=== PATIENT | male | born 1945 | race Native Hawaiian/Other Pacific Islander ===

== ENCOUNTER 2018-03-29 12:50 | Emergency (ER) | payer MEDICARE ==
[2018-03-29 13:13] VITALS: BP 156/76; PULSE 84; RESP 16; TEMP 97.3; O2SAT 98
--- NOTE | 2018-03-29 14:33 | RAD ---
Date of service: 03/29/2018 PROCEDURE: Right Knee Radiographs. HISTORY: fall from walking COMPARISON: None. FINDINGS: BONES: No acute fracture or destructive bony lesion identified. JOINTS: No subluxation or dislocation is identified. Moderate joint space narrowing seen the medial femorotibial compartment as well as the patellofemoral compartment compatible with osteoarthritis. Osteophyte development is mild at the patellofemoral compartment. Remarkable only for ossification insertion of the quadriceps and patellar tendons distally. JOINT EFFUSION: None. OTHER FINDINGS: None. IMPRESSION: Moderate osteoarthritis. No acute fracture, subluxation or dislocation identified.
--- NOTE | 2018-03-29 15:00 | C.PDOC ---
History Of Present Illness 72-year-old male presents to the ED for evaluation after he sustained a fall while walking with his daughter earlier today. Patient states that he tripped, fell, and sustained a contusion to his left forehead, abrasion to his right knee, and superficial abrasion to his left third and fourth knuckles. Patient has a history of brain aneurysm with right-sided craniotomy. He denies loss of consciousness, nausea, vomiting, or extremity numbness and weakness. - HPI Time Seen by Provider: 03/29/18 13:43 Chief Complaint (Nursing): Trauma Past Medical History Reviewed: Historical Data, Nursing Documentation, Vital Signs Vital Signs: Last Vital Signs Temp 97.3 F L 03/29/18 13:12 Pulse 84 03/29/18 13:12 Resp 16 03/29/18 13:12 BP 156/76 H 03/29/18 13:12 Pulse Ox 98 03/29/18 13:12 - Medical History PMH: HTN Family History: States: No Known Family Hx - Social History Hx Alcohol Use: No Hx Substance Use: No Review Of Systems Gastrointestinal: Negative for: Nausea, Vomiting Skin: Positive for: Other (left forehead contusion, abrasion to right knee and left 3rd and 4th knuckles ) Neurological: Negative for: Other (LOC ) Physical Exam - Physical Exam Appears: Non-toxic, No Acute Distress, Other (elderly male ) Skin: Normal Color, Warm, Dry Head: Other (old craniotomy to right temporal area. mild contusion to left frontal area, no swelling ) Eye(s): bilateral: Normal Inspection Oral Mucosa: Moist Neck: Supple Chest: Symmetrical, No Deformity, No Tenderness Cardiovascular: Rhythm Regular, No Murmur Respiratory: Normal Breath Sounds, No Rales, No Rhonchi, No Wheezing Extremity: Normal ROM, Capillary Refill (less than 2 seconds ), Other (moderate contusion with mild swelling to right knee, mild abrasion to left 3rd and 4th knuckles ) Neurological/Psych: Oriented x3, Normal Speech, Normal Cognition ED Course And Treatment O2 Sat by Pulse Oximetry: 98 (on RA) Pulse Ox Interpretation: Normal - CT Scan/US R knee Other Rad Studies (CT/US): Interpreted By Me (neg) head CT Other Rad Studies (CT/US): Interpreted By Me, Radiology Report Reviewed (neg (old craniotomy)) Progress Note: CT Head and right knee XR ordered. ice packs/motrin Reevaluation Time: 14:59 Reassessment Condition: Improved Medical Decision Making Medical Decision Making: accidental fall from walking with L frontal contusion and R knee contusion, L hand abrasions x-rays/CT's neg symptomatic relief. Disposition Doctor Will See Patient In The: Office Counseled Patient/Family Regarding: Studies Performed, Diagnosis - Disposition Referrals: Abril Yang MD [Medical Doctor] - Disposition: HOME/ ROUTINE Disposition Time: 15:00 Condition: GOOD Additional Instructions: CT of head and R knee NEG continue ice packs 1/2 hour per hour, nothing hot motrin 400 mg every 6 hours as needed Instructions: Contusion (DC) Forms: [employer] (British) - Clinical Impression Clinical Impression: Contusion - Scribe Statement The provider has reviewed the documentation as recorded by the Scribe (Lisa Rouse) Provider Attestation: All medical record entries made by the Scribe were at my direction and personally dictated by me. I have reviewed the chart and agree that the record accurately reflects my personal performance of the history, physical exam, medical decision making, and the department course for this patient. I have also personally directed, reviewed, and agree with the discharge instructions and disposition.
[2018-03-29] MEDS ORDERED: Bacitracin 500 Units/gm Oint Foilpak UD ONE (15:07)
--- NOTE | 2018-03-29 15:18 | CT ---
Date of service: 03/29/2018 PROCEDURE: CT HEAD WITHOUT CONTRAST. HISTORY: fall from walking, L frontal COMPARISON: None available. TECHNIQUE: Axial computed tomography images were obtained through the head/brain without intravenous contrast. Radiation dose: Total exam DLP = 1086.34 mGy-cm. This CT exam was performed using one or more of the following dose reduction techniques: Automated exposure control, adjustment of the mA and/or kV according to patient size, and/or use of iterative reconstruction technique. FINDINGS: HEMORRHAGE: No intracranial hemorrhage. 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 Status post clipping of right MCA aneurysm. There is no mass, mass effect or abnormal extra-axial fluid collection. There are severe coarse atherosclerotic calcifications in the carotid and vertebral arteries. VENTRICLES: There is moderate age-related global parenchymal volume loss and proportionate enlargement of the ventricles and cortical sulci. CALVARIUM: Status post right parietal craniotomy. No calvarial fracture. There is a small left frontal scalp hematoma. 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 There is chronic right anterior ethmoid sinusitis. MASTOID AIR CELLS: Fluid in the right mastoid air cells. There is abnormal soft tissue in the right superior mastoids with a defect in the anterior mastoid wall. There is cerumen in the right external auditory canal. OTHER FINDINGS: None. IMPRESSION: 1. No acute intracranial abnormality. Small left frontal scalp hematoma. 2. Status post clipping of right MCA aneurysm in the sylvian fissure, cystic encephalomalacia in the right temporal lobe. 3. Cystic encephalomalacia in the left frontal lobe. 4. Chronic right maxillary sinusitis. 5. Acute and/or chronic right mastoiditis. Abnormal soft tissue in the right superior mastoid with defect in the anterior wall, findings could represent chronic inflammatory tissue however cholesteatoma and other neoplasms are also differential considerations. Dedicated CT scan of the mastoids on a non emergent basis is recommended for further evaluation.
== END 2018-03-29 15:18 | disposition home or self-care (01) ==
LOC: C.ER 12:50
DX: S80.01XA Contusion of right knee, initial encounter (principal); S00.93XA Contusion of unspecified part of head, initial encounter; W01.0XXA Fall on same level from slipping, tripping and stumbling without subsequent striking against object, initial encounter

== ENCOUNTER 2018-06-02 09:10 | Inpatient (IN) | payer MEDICARE ==
[2018-06-02 10:08] LABS: BASO % 0.2 % (0.0-2.0); EOS # 0.1 K/uL (0.0-0.7); EOS % 0.7 % (0.0-4.0); HEMOGLOBIN 9.3 g/dL (12.0-18.0); LYMPH % 13.3 % (20.0-40.0); MEAN CELL VOLUME 109.1 fL (80.0-94.0); MEAN CORPUSCULAR HEMOGLOBIN 37.2 pg (27.0-31.0); MEAN CORPUSCULAR HGB CONC 34.1 g/dL (33.0-37.0); MEAN PLATELET VOLUME 8.3 fL (7.2-11.7); MONO # 0.5 K/uL (0.0-0.8); MONO % 6.3 % (0.0-10.0); NEUT # 6.2 K/uL (1.8-7.0); NEUT % 79.5 % (50.0-75.0); NRBC % 0.1 % (0.0-2.0); RBC 2.51 Mil/uL (4.40-5.90); RED CELL DISTRIBUTION WIDTH 15.5 % (11.5-14.5); WHITE BLOOD COUNT 7.8 K/uL (4.8-10.8)
[2018-06-02 10:33] LABS: ALB/GLOB RATIO 1.5 (1.0-2.1); ALBUMIN 4.2 g/dL (3.5-5.0); BLOOD UREA NITROGEN 31 mg/dL (9-20); CALCIUM 8.9 mg/dl (8.6-10.4); GFR NON-AFRICAN AMERICAN > 60
[2018-06-02 10:42] LABS: ALT/SGPT 30 U/L (21-72); AST/SGOT 47 U/L (17-59)
--- NOTE | 2018-06-02 11:02 | RAD ---
PROCEDURE: Left Hip X-ray Radiographs. HISTORY: s/p fall - r/o fx COMPARISON: None. TECHNIQUE: 2 views obtained. FINDINGS: BONES: The pelvic ring is intact. There is diffuse bone demineralization. There is no acute fracture or bone destruction. JOINTS: The joint spaces are preserved. SOFT TISSUES: Normal. OTHER FINDINGS: None. IMPRESSION: No acute displaced fracture or dislocation. Please note occult fractures cannot be excluded on plain radiographs. If there is a persistent clinical concern, an MRI of the hip may be performed for further evaluation.
--- NOTE | 2018-06-02 11:07 | RAD ---
Date of service: 06/02/2018 PROCEDURE: Radiographs of the chest and bilateral ribs HISTORY: s/p fall - r/o fx PTX COMPARISON: None available. TECHNIQUE: Frontal radiograph of the chest and multiple oblique radiographs of the bilateral ribs were obtained. 5 views obtained. FINDINGS: RIGHT RIBS: No acute fracture or focal lesion visualized. There is mild diffuse bone demineralization LEFT RIBS: No acute fracture or focal lesion visualized. There is mild diffuse bone demineralization LUNGS: Clear. PLEURA: No pneumothorax or pleural fluid. CARDIOVASCULAR: Normal cardiac size. No pulmonary vascular congestion. There are aortic atherosclerotic calcification present OTHER FINDINGS: None. IMPRESSION: No acute displaced rib fracture. Clear lungs.
[2018-06-02] MEDS ORDERED: Sodium Chloride 0.9% 1,000 ML IV SCH (11:15)
--- NOTE | 2018-06-02 12:21 | C.PDOC ---
History Of Present Illness 72 y/o male comes in to ED s/p slip and fall. Patient states he walking in the kitchen when he slipped on a rag. He denies hitting his head on the ground. Denies LOC. Reports no symptoms prior to fall. Patient is here now complaining of left rib and left hip pain. Denies abdominal pain. - HPI Chief Complaint (Nursing): Trauma History Per: Patient History/Exam Limitations: no limitations Onset/Duration Of Symptoms: Hrs Past Medical History Reviewed: Historical Data, Nursing Documentation, Vital Signs Vital Signs: Last Vital Signs Temp 98.4 F 06/02/18 11:56 Pulse 64 06/02/18 11:56 Resp 20 06/02/18 11:56 BP 176/84 H 06/02/18 11:56 Pulse Ox 99 06/02/18 11:56 - Medical History PMH: HTN Family History: States: No Known Family Hx - Social History Hx Alcohol Use: No Hx Substance Use: No Review Of Systems Except As Marked, All Systems Reviewed And Found Negative. Constitutional: Negative for: Fever, Chills Gastrointestinal: Negative for: Abdominal Pain Musculoskeletal: Positive for: Other (Left rib and left hip pain) Neurological: Negative for: Weakness, Numbness, Other (LOC) Physical Exam - Physical Exam Appears: Non-toxic, No Acute Distress, Other (Thin) Skin: Warm, Dry Head: Atraumatic, Normacephalic Eye(s): bilateral: Normal Inspection Oral Mucosa: Moist Neck: Supple Cardiovascular: Murmur (Systolic murmur) Respiratory: Normal Breath Sounds, No Rhonchi Gastrointestinal/Abdominal: Soft, No Tenderness Extremity: Tenderness (point tenderness to the left anterior rib cage; minimal left hip tenderness), Other (trace edema) Extremity: Bilateral: Normal ROM Neurological/Psych: Oriented x3, Normal Speech, Normal Motor, Normal Sensation ED Course And Treatment - Laboratory Results Result Diagrams: 06/02/18 10:04 06/02/18 10:04 Lab Results: Troponin I < 0.0120 ng/mL (0.00-0.120) 06/02/18 10:04 Total Bilirubin 0.7 mg/dL (0.2-1.3) 06/02/18 10:04 AST 47 U/L (17-59) 06/02/18 10:04 ALT 30 U/L (21-72) 06/02/18 10:04 Alkaline Phosphatase 36 U/L (38-126) L 06/02/18 10:04 Total Protein 6.9 g/dL (6.3-8.3) 06/02/18 10:04 Albumin 4.2 g/dL (3.5-5.0) 06/02/18 10:04 Globulin 2.7 gm/dL (2.2-3.9) 06/02/18 10:04 Albumin/Globulin Ratio 1.5 (1.0-2.1) 06/02/18 10:04 ECG: Interpreted By Me, Viewed By Me ECG Rhythm: Sinus Rhythm Rate From EC O2 Sat by Pulse Oximetry: 99 (RA) Pulse Ox Interpretation: Normal - Other Rad Ribs XR X-Ray: Read By Radiologist Interpretation: FINDINGS: RIGHT RIBS: No acute fracture or focal lesion visualized. There is mild diffuse bone demineralization. LEFT RIBS: No acute fracture or focal lesion visualized. There is mild diffuse bone demineralizat ion. LUNGS: Clear. PLEURA: No pneumothorax or pleural fluid. CARDIOVASCULAR: Normal cardiac size. No pulmonary vascular congestion. There are aortic atherosclerotic calcification present. OTHER FINDINGS: None. IMPRESSION: No acute displaced rib fracture. Clear lungs. Hip/Pelvis XR X-Ray: Read By Radiologist Interpretation: FINDINGS: BONES: The pelvic ring is intact. There is diffuse bone demineralization. There is no acute fracture or bone destruction. JOINTS: The joint spaces are preserved. SOFT TISSUES: Normal. OTHER FINDINGS: None. IMPRESSION: No acute displaced fracture or dislocation. Please note occult fractures cannot be excluded on plain radiographs. If there is a persistent clinical concern, an MRI of the hip may be performed for further evaluation. Medical Decision Making Medical Decision Making: Plan: --EKG --Labs --IV fluids 1L --Hip XR --Bilateral Ribs XR Progress: Discussed case with Dr. Mendoza, patient to be admitted to medical floor for dehydration and hyponatremia. Disposition - Disposition Disposition: HOSPITALIZED Disposition Time: 11:00 Condition: STABLE - Clinical Impression Clinical Impression: Dehydration, Hyponatremia - Scribe Statement The provider has reviewed the documentation as recorded by the Lolly Santamaria Provider Attestation: All medical record entries made by the Michaelibmiguelito were at my direction and personally dictated by me. I have reviewed the chart and agree that the record accurately reflects my personal performance of the history, physical exam, medical decision making, and the department course for this patient. I have also personally directed, reviewed, and agree with the discharge instructions and disposition.
--- NOTE | 2018-06-02 12:57 | CP.PCM.HP ---
History of Present Illness - History of Present Illness History of Present Illness: 72 years old Male [place] with PMH Hypertenssion AVmalformation/aneurysm post repair years and years ago admitted for fall patient reports he was walking in the house and step on a rug and slipped and fell on his butt. afterwhich patient complained of hip and rib pain and dizziness . patient was brought to ER . Xrays of rib abd hip did not show any fracture. But sodium was found to be low and BUN high and anemia. patient was a dmitted for further work up evaluation and management PMH Hypertension S/P Frontal Aneurysmal clipping-1996 [facility] IC bleed /[id number] Cholesterol Post zoster Infection CRI Oateoporosis does not like medication Anemia recent acute anemia, heart murmur, leg edema fluid retention undergoing evaluation Medications lisinopril metoprolol allopurinol furosemide Social non etoh non smoker lives with family very picky on foods Immunization refuses Preventative refuses colonoscopy - lately-due to worsening anemia- patient had chaged mind Present on Admission - Present on Admission Any Indicators Present on Admission: No History of DVT/PE: No History of Uncontrolled Diabetes: No Urinary Catheter: No Decubitus Ulcer Present: No Review of Systems - Constitutional Constitutional: Weakness, Other (no headache, no syncope ). absent: Anorexia (no anorexia but patient is very picky on food due to healthy beliefs ), Fatigue, Fever, Headache - EENT Eyes: absent: Other Visual Disturbances Ears: Dizziness (that happened after the fall) Nose/Mouth/Throat: absent: Nasal Congestion, Sinus Pressure - Cardiovascular Cardiovascular: Leg Edema, Pedal Edema. absent: Chest Pain (but reports pain on right side ribs), Syncope - Respiratory Respiratory: absent: Cough, Pain on Inspiration, Chest Congestion - Musculoskeletal Musculoskeletal: absent: Abnormal Gait (but is walks slowly ), Deformity, Joint Swelling, Stiffness - Integumentary Integumentary: absent: Rash, Sores, Jaundice - Neurological Neurological: Dizziness. absent: Abnormal Movements, Abnormal Speech, Memory Loss - Psychiatric Psychiatric: absent: Confusion, Depression - Endocrine Endocrine: absent: Fatigue, Palpitations, Polydipsia, Polyphagia, Polyuria - Hematologic/Lymphatic Hematologic: absent: Easy Bleeding, Easy Bruising Past Patient History - Past Medical History & Family History Past Medical History?: Yes - Past Social History Smoking Status: Never Smoked - CARDIAC Hx Hypertension: Yes - NEUROLOGICAL Other/Comment: anyeursm - PSYCHIATRIC Hx Substance Use: No - SURGICAL HISTORY Other/Comment: Brain surgery ,aneurysm, 1997 - ANESTHESIA Hx Anesthesia: No Hx Anesthesia Reactions: No Meds Allergies/Adverse Reactions: Allergies Allergy/AdvReac Type Severity Reaction Status Date / Time No Known Allergies Allergy Verified 06/02/18 09:24 Physical Exam - Constitutional Appears: Non-toxic (but looks quiet -looks slow-slower than before slow to answer but answers correctly and appropriately ) - Head Exam Head Exam: ATRAUMATIC, NORMOCEPHALIC - Eye Exam Eye Exam: absent: Nystagmus - ENT Exam ENT Exam: Mucous Membranes Dry - Respiratory Exam Respiratory Exam: Clear to Auscultation Bilateral, NORMAL BREATHING PATTERN - Cardiovascular Exam Cardiovascular Exam: REGULAR RHYTHM, Systolic Murmur - GI/Abdominal Exam GI & Abdominal Exam: Normal Bowel Sounds, Soft. absent: Tenderness (with left inguinal hernia non tender , reducible ) - Extremities Exam Extremities exam: Positive for: full ROM, normal inspection, pedal pulses present (with plus 2 edema uop to below the knee ) - Neurological Exam Neurological exam: Alert, Normal Gait (but walks slow ), Oriented x3, Reflexes Normal - Psychiatric Exam Psychiatric exam: Normal Affect, Normal Mood - Skin Skin Exam: Intact, Normal Color Results - Vital Signs Recent Vital Signs: Last Vital Signs Temp 98.4 F 06/02/18 11:56 Pulse 64 06/02/18 11:56 Resp 20 06/02/18 11:56 BP 176/84 H 06/02/18 11:56 Pulse Ox 99 06/02/18 12:26 - Labs Result Diagrams: 06/02/18 10:04 06/02/18 10:04 Labs: Laboratory Results - last 24 hr 06/02/18 06/02/18 10:04 10:04 WBC 7.8 RBC 2.51 L Hgb 9.3 L Hct 27.4 L MCV 109.1 H MCH 37.2 H MCHC 34.1 RDW 15.5 H Plt Count 139 MPV 8.3 Neut % (Auto) 79.5 H Lymph % (Auto) 13.3 L [place] % (Auto) 6.3 Eos % (Auto) 0.7 Baso % (Auto) 0.2 Neut # (Auto) 6.2 Lymph # (Auto) 1.0 [place] # (Auto) 0.5 Eos # (Auto) 0.1 Baso # (Auto) 0.0 Sodium 124 L Potassium 4.9 Chloride 91 L Carbon Dioxide 26 Anion Gap 12 BUN 31 H Creatinine 1.1 Est GFR ( Amer) > 60 Est GFR (Non-Af Amer) > 60 Random Glucose 94 Calcium 8.9 Total Bilirubin 0.7 AST 47 ALT 30 Alkaline Phosphatase 36 L Troponin I < 0.0120 Total Protein 6.9 Albumin 4.2 Globulin 2.7 Albumin/Globulin Ratio 1.5 Assessment & Plan - Assessment and Plan (Free Text) Assessment: Patient admittedf for Hyponatremia, Dehydration- NS-Ivf- and follow up labs fall- contributory factors-general weakness, recent acute anemia, leg edema/ fluid retention , dehydration, hyponatremia, environemental for hydration, sodium correction, 2d echo, with rib pain hip pain xrays no fracture -supportive, pain control Anemia , megaloblastic ,acute/chronic with recent worsening as per family , patient is very picky on food for health reasons, further education - follow up -continue iron Heart murmur and fluid retention continue lasix 2decho cardio Osteoporosis been refusing medications - Date & Time Date: 06/02/18 Time: 13:11
[2018-06-02 19:47] LABS: BASO % 0.6 % (0.0-2.0); EOS # 0.1 K/uL (0.0-0.7); EOS % 2.3 % (0.0-4.0); HEMOGLOBIN 8.7 g/dL (12.0-18.0); LYMPH # 0.7 K/uL (1.0-4.3); LYMPH % 13.4 % (20.0-40.0); MEAN CELL VOLUME 107.9 fL (80.0-94.0); MEAN CORPUSCULAR HGB CONC 34.3 g/dL (33.0-37.0); MEAN PLATELET VOLUME 7.5 fL (7.2-11.7); MONO # 0.4 K/uL (0.0-0.8); MONO % 7.4 % (0.0-10.0); NEUT # 4.2 K/uL (1.8-7.0); NEUT % 76.3 % (50.0-75.0); NRBC % 0.1 % (0.0-2.0); RBC 2.35 Mil/uL (4.40-5.90); RED CELL DISTRIBUTION WIDTH 15.4 % (11.5-14.5); WHITE BLOOD COUNT 5.6 K/uL (4.8-10.8)
[2018-06-02 20:28] LABS: ALB/GLOB RATIO 1.5 (1.0-2.1); ALBUMIN 3.5 g/dL (3.5-5.0); ALT/SGPT 22 U/L (21-72); AST/SGOT 33 U/L (17-59); BLOOD UREA NITROGEN 25 mg/dL (9-20); CALCIUM 8.5 mg/dl (8.6-10.4); GFR NON-AFRICAN AMERICAN > 60
--- NOTE | 2018-06-03 08:37 | CP.PCM.PN ---
Subjective - Date & Time of Evaluation Date of Evaluation: 06/03/18 Time of Evaluation: 04:00 - Subjective Subjective: chart review lab review- drop in hemoglobin hematcrit FOB ongoing no unusual event on notes still hyponatremic on NS patient seen; seen in the morning but is having echo patient seen, no complaints, more active no bleeding FOB pending echo-EF normal no dizziness appetite is normal Objective - Vital Signs/Intake and Output Vital Signs (last 24 hours): Temp Pulse Resp BP Pulse Ox 98.1 F 68 20 136/64 99 06/03/18 07:00 06/03/18 07:00 06/03/18 07:00 06/03/18 07:00 06/03/18 07:00 Intake and Output: 06/03/18 06/03/18 06:59 18:59 Intake Total 580 Balance 580 - Medications Medications: Current Medications Acetaminophen (Tylenol 325mg Tab) 650 mg PO Q6 PRN PRN Reason: Pain, moderate (4-7) Allopurinol (Zyloprim) 100 mg PO DAILY [facility] Ferrous Gluconate (Fergon) 324 mg PO TID [facility] Sodium Chloride (Sodium Chloride 0.9%) 1,000 mls @ 60 mls/hr IV .[id number] [facility] Last Admin: 06/02/18 21:59 Dose: 60 mls/hr Losartan Potassium (Cozaar) 50 mg PO DAILY [facility] Metoprolol Tartrate (Lopressor) 50 mg PO DAILY [facility] Pantoprazole Sodium (Protonix Ec Tab) 40 mg PO DAILY [facility] Pneumococcal Polyvalent Vaccine (Pneumovax 23 Vaccine) 0.5 ml IM .ONCE ONE Stop: 06/03/18 10:01 Rosuvastatin Calcium (Crestor) 5 mg PO [facility] Last Admin: 06/02/18 21:56 Dose: 5 mg - Labs Labs: 06/02/18 19:39 06/02/18 19:39 - Constitutional Appears: Non-toxic, No Acute Distress - Head Exam Head Exam: ATRAUMATIC, NORMOCEPHALIC - Eye Exam Eye Exam: Normal appearance. absent: Nystagmus - ENT Exam ENT Exam: Mucous Membranes Moist - Respiratory Exam Respiratory Exam: NORMAL BREATHING PATTERN (slight congestion in the bases ) - Cardiovascular Exam Cardiovascular Exam: REGULAR RHYTHM, Murmur - GI/Abdominal Exam GI & Abdominal Exam: Soft, Normal Bowel Sounds. absent: Tenderness - Extremities Exam Extremities Exam: absent: Pedal Edema (no edema today- had lasix ) - Back Exam Back Exam: Full ROM. absent: rash noted - Neurological Exam Neurological Exam: Alert, Awake, Normal Gait, Oriented x3 - Psychiatric Exam Psychiatric exam: Normal Affect, Normal Mood - Skin Skin Exam: Intact, Normal Color Assessment and Plan - Assessment and Plan (Free Text) Assessment: Patient admitted for Hyponatremia post fall yesterday and dehydration on IVF with some improvement of sodium but still on low side, no seizure activity with slight basal congestion- will hold IVF, continue lasix Anemia -acute on chronic- stable hemoglobin low Platelet with no bleeding no hematomas Echocardiogram normal EF hypertension continue meds Cholesterol- on meds history of ICBleed and aneurysm s/p clip- more than 20 years ago , [facility], no intracranial sign and symptoms, controlled GI prophylaxis leg sequentil no drug DVT prophylaxis for now
[2018-06-03] MEDS ORDERED: Pneumococcal 23-Valent Vaccine IM ONE (10:00)
[2018-06-03] MEDS: Pantoprazole 40 mg EC Tab PO SCH (11:00)
[2018-06-03 11:56] LABS: EOS # 0.1 K/uL (0.0-0.7); MONO # 0.3 K/uL (0.0-0.8); NEUT # 2.9 K/uL (1.8-7.0); RED CELL DISTRIBUTION WIDTH 15.6 % (11.5-14.5); WHITE BLOOD COUNT 4.1 K/uL (4.8-10.8)
[2018-06-03 12:10] LABS: BASO % 0.8 % (0.0-2.0); EOS % 2.6 % (0.0-4.0); HEMOGLOBIN 9.1 g/dL (12.0-18.0); LYMPH # 0.7 K/uL (1.0-4.3); LYMPH % 17.3 % (20.0-40.0); MEAN CORPUSCULAR HEMOGLOBIN 37.6 pg (27.0-31.0); MEAN CORPUSCULAR HGB CONC 34.5 g/dL (33.0-37.0); MEAN PLATELET VOLUME 7.2 fL (7.2-11.7); MONO % 7.4 % (0.0-10.0); NEUT % 71.9 % (50.0-75.0); NRBC % 0.2 % (0.0-2.0); RBC 2.42 Mil/uL (4.40-5.90)
[2018-06-03 12:20] LABS: ALB/GLOB RATIO 1.5 (1.0-2.1); ALBUMIN 3.6 g/dL (3.5-5.0); ALT/SGPT 30 U/L (21-72); AST/SGOT 33 U/L (17-59); BLOOD UREA NITROGEN 21 mg/dL (9-20); CALCIUM 8.5 mg/dl (8.6-10.4); GFR NON-AFRICAN AMERICAN > 60
--- NOTE | 2018-06-03 14:19 | CP.PCM.CON ---
<Maricarmen Lockett - Last Filed: 06/03/18 14:51> History of Present Illness - History of Present Illness History of Present Illness: Cardiology Consult Note for Dr. Gray This patient is a 72 year old male with PMHx of HTN, Hemmoraghic Stroke, Osteoporosis, and anemia who was admitted to [facility] for evaluation and treatment of mechanical fall. Cardiology was consulted on this case for evaluation and treatment of persistent lower extremity edema despite lasix administration. ROS difficult to obtained due to patient being slightly confused and is a poor historian. He is AAOx3 (Disoriented to Time (Could not state the year). Overall he states he feels better than yesterday. He states his swelling of the leg improved. ROS: Unabled to be obtained. Patient PMHx: As stated above PSHx: Frontal Aneurysmal Clipping Allergies: NKDA SocialHx: Denies tobacco, EtoH, and Illicit Drug Use FamHx: Non-Cont. Meds: As per MAR. PMD: Dr. Yang. Review of Systems - Review of Systems All systems: reviewed and no additional remarkable complaints except (As per HPI) Past Patient History - Past Medical History & Family History Past Medical History?: Yes - Past Social History Smoking Status: Never Smoked - CARDIAC Hx Hypertension: Yes - NEUROLOGICAL Other/Comment: anyeursm - PSYCHIATRIC Hx Substance Use: No - SURGICAL HISTORY Other/Comment: Brain surgery ,aneurysm, 1997 - ANESTHESIA Hx Anesthesia: No Hx Anesthesia Reactions: No Meds Allergies/Adverse Reactions: Allergies Allergy/AdvReac Type Severity Reaction Status Date / Time No Known Allergies Allergy Verified 06/02/18 09:24 - Medications Medications: Current Medications Acetaminophen (Tylenol 325mg Tab) 650 mg PO Q6 PRN PRN Reason: Pain, moderate (4-7) Allopurinol (Zyloprim) 100 mg PO DAILY [facility] Last Admin: 06/03/18 11:00 Dose: 100 mg Ferrous Gluconate (Fergon) 324 mg PO TID [facility] Last Admin: 06/03/18 11:02 Dose: 324 mg Furosemide (Lasix) 20 mg PO DAILY [facility] Sodium Chloride (Sodium Chloride 0.9%) 1,000 mls @ 60 mls/hr IV .[id number] [facility] Last Admin: 06/02/18 21:59 Dose: 60 mls/hr Losartan Potassium (Cozaar) 50 mg PO DAILY [facility] Last Admin: 06/03/18 11:01 Dose: 50 mg Metoprolol Tartrate (Lopressor) 50 mg PO DAILY [facility] Last Admin: 06/03/18 11:01 Dose: 50 mg Pantoprazole Sodium (Protonix Ec Tab) 40 mg PO DAILY [facility] Last Admin: 06/03/18 11:00 Dose: 40 mg Rosuvastatin Calcium (Crestor) 5 mg PO HS [facility] Last Admin: 06/02/18 21:56 Dose: 5 mg Physical Exam - Constitutional Appears: Non-toxic, No Acute Distress, Cachectic, Chronically Ill - Head Exam Head Exam: ATRAUMATIC, NORMAL INSPECTION, NORMOCEPHALIC - Eye Exam Eye Exam: EOMI, Normal appearance - ENT Exam ENT Exam: Mucous Membranes Moist - Cardiovascular Exam Cardiovascular Exam: RRR, +S1, +S2 - GI/Abdominal Exam GI & Abdominal Exam: Normal Bowel Sounds, Soft. absent: Tenderness - Extremities Exam Extremities exam: Positive for: normal capillary refill. Negative for: pedal edema - Neurological Exam Neurological exam: Alert - Psychiatric Exam Psychiatric exam: Normal Affect, Normal Mood - Skin Skin Exam: Dry, Intact, Normal Color, Warm Results - Vital Signs Recent Vital Signs: Last Vital Signs Temp 98.1 F 06/03/18 07:00 Pulse 68 06/03/18 07:00 Resp 20 06/03/18 07:00 BP 136/64 06/03/18 07:00 Pulse Ox 99 06/03/18 07:00 - Labs Result Diagrams: 06/03/18 11:41 06/03/18 11:41 Labs: Laboratory Results - last 24 hr 06/02/18 06/02/18 06/03/18 19:39 19:39 11:41 WBC 5.6 4.1 L RBC 2.35 L 2.42 L Hgb 8.7 L 9.1 L Hct 25.3 L 26.4 L MCV 107.9 H 109.0 H MCH 37.0 H 37.6 H MCHC 34.3 34.5 RDW 15.4 H 15.6 H Plt Count 63 L D 116 L D MPV 7.5 7.2 Neut % (Auto) 76.3 H 71.9 Lymph % (Auto) 13.4 L 17.3 L [place] % (Auto) 7.4 7.4 Eos % (Auto) 2.3 2.6 Baso % (Auto) 0.6 0.8 Neut # (Auto) 4.2 2.9 Lymph # (Auto) 0.7 L 0.7 L [place] # (Auto) 0.4 0.3 Eos # (Auto) 0.1 0.1 Baso # (Auto) 0.0 0.0 Differential Comment Sodium 125 L Potassium 4.4 Chloride 93 L Carbon Dioxide 25 Anion Gap 12 BUN 25 H Creatinine 1.1 Est GFR ( Amer) > 60 Est GFR (Non-Af Amer) > 60 Random Glucose 107 Calcium 8.5 L Phosphorus Magnesium Total Bilirubin 0.5 AST 33 ALT 22 Alkaline Phosphatase 33 L Total Protein 5.8 L Albumin 3.5 Globulin 2.4 Albumin/Globulin Ratio 1.5 06/03/18 11:41 WBC RBC Hgb Hct MCV MCH MCHC RDW Plt Count MPV Neut % (Auto) Lymph % (Auto) [place] % (Auto) Eos % (Auto) Baso % (Auto) Neut # (Auto) Lymph # (Auto) [place] # (Auto) Eos # (Auto) Baso # (Auto) Differential Comment Sodium 130 L Potassium 4.4 Chloride 94 L Carbon Dioxide 27 Anion Gap 14 BUN 21 H Creatinine 1.0 Est GFR ( Amer) > 60 Est GFR (Non-Af Amer) > 60 Random Glucose 97 Calcium 8.5 L Phosphorus 3.8 Magnesium 1.9 Total Bilirubin 0.6 AST 33 ALT 30 Alkaline Phosphatase 40 Total Protein 6.0 L Albumin 3.6 Globulin 2.4 Albumin/Globulin Ratio 1.5 Assessment & Plan - Assessment and Plan (Free Text) Assessment: 72 year old male with PMHx of HTN, Hemmoraghic Stroke, Osteoporosis, and anemia who was admitted to [facility] for evaluation and treatment of mechanical fall. Cardiology Consulted for evaluation and treatment of persistent lower Ext. Edema. Plan: Lower Ext. Edema ECHO (06/03/18): COMPLETED, Will Review Mgmt: Continue Lasix 20mg PO Daily Compression Stocking Macrocytic Anemia Anemia workup, F/U Patient discussed with Attending (Dr. Gary) Maricarmen Lockett, PGY-2 <Erik Gray - Last Filed: 06/03/18 21:20> Meds - Medications Medications: Current Medications Acetaminophen (Tylenol 325mg Tab) 650 mg PO Q6 PRN PRN Reason: Pain, moderate (4-7) Allopurinol (Zyloprim) 100 mg PO DAILY [facility] Last Admin: 06/03/18 11:00 Dose: 100 mg Ferrous Gluconate (Fergon) 324 mg PO TID [facility] Last Admin: 06/03/18 18:03 Dose: 324 mg Furosemide (Lasix) 20 mg PO DAILY [facility] Last Admin: 06/03/18 14:26 Dose: Not Given Lactulose (Enulose) 20 gm PO DAILY PRN PRN Reason: Constipation Last Admin: 06/03/18 20:21 Dose: 20 gm Losartan Potassium (Cozaar) 50 mg PO DAILY [facility] Last Admin: 06/03/18 11:01 Dose: 50 mg Metoprolol Tartrate (Lopressor) 50 mg PO DAILY [facility] Last Admin: 06/03/18 11:01 Dose: 50 mg Pantoprazole Sodium (Protonix Ec Tab) 40 mg PO DAILY [facility] Last Admin: 06/03/18 11:00 Dose: 40 mg Rosuvastatin Calcium (Crestor) 5 mg PO HS [facility] Last Admin: 06/02/18 21:56 Dose: 5 mg Results - Vital Signs Recent Vital Signs: Last Vital Signs Temp 99.1 F 06/03/18 15:00 Pulse 74 06/03/18 16:40 Resp 20 06/03/18 15:00 BP 172/91 H 06/03/18 15:00 Pulse Ox 100 06/03/18 15:00 - Labs Result Diagrams: 06/03/18 11:41 06/03/18 11:41 Labs: Laboratory Results - last 24 hr 06/03/18 06/03/18 06/03/18 11:41 11:41 16:42 WBC 4.1 L RBC 2.42 L Hgb 9.1 L Hct 26.4 L MCV 109.0 H MCH 37.6 H MCHC 34.5 RDW 15.6 H Plt Count 116 L D MPV 7.2 Neut % (Auto) 71.9 Lymph % (Auto) 17.3 L [place] % (Auto) 7.4 Eos % (Auto) 2.6 Baso % (Auto) 0.8 Neut # (Auto) 2.9 Lymph # (Auto) 0.7 L [place] # (Auto) 0.3 Eos # (Auto) 0.1 Baso # (Auto) 0.0 Differential Comment Retic Count 1.4 Haptoglobin Sodium 130 L Potassium 4.4 Chloride 94 L Carbon Dioxide 27 Anion Gap 14 BUN 21 H Creatinine 1.0 Est GFR ( Amer) > 60 Est GFR (Non-Af Amer) > 60 Random Glucose 97 Calcium 8.5 L Phosphorus 3.8 Magnesium 1.9 Iron TIBC % Saturation Ferritin Total Bilirubin 0.6 AST 33 ALT 30 Alkaline Phosphatase 40 Total Protein 6.0 L Albumin 3.6 Globulin 2.4 Albumin/Globulin Ratio 1.5 Vitamin B12 Folate 06/03/18 06/03/18 06/03/18 16:42 16:42 16:42 WBC RBC Hgb Hct MCV MCH MCHC RDW Plt Count MPV Neut % (Auto) Lymph % (Auto) [place] % (Auto) Eos % (Auto) Baso % (Auto) Neut # (Auto) Lymph # (Auto) [place] # (Auto) Eos # (Auto) Baso # (Auto) Differential Comment Retic Count Haptoglobin 34.6 Sodium Potassium Chloride Carbon Dioxide Anion Gap BUN Creatinine Est GFR ( Amer) Est GFR (Non-Af Amer) Random Glucose Calcium Phosphorus Magnesium Iron 44 L TIBC 245 L % Saturation 18 L Ferritin 248.0 Total Bilirubin AST ALT Alkaline Phosphatase Total Protein Albumin Globulin Albumin/Globulin Ratio Vitamin B12 776 Folate > 20.0 Assessment & Plan - Assessment and Plan (Free Text) Plan: Patient seen and evaluated personally by me. Plan of care d/w the medical cost consultant and as documented
--- NOTE | 2018-06-03 16:27 | CARD ---
APPROVED REPORT Date of service: 06/03/2018 EXAM: Two-dimensional and M-mode echocardiogram with Doppler and color Doppler. INDICATION Dizziness and Vertigo Murmur RISK FACTORS Hypertension 2D DIMENSIONS IVSd0.9 (0.7-1.1cm)LVDd3.8 (3.9-5.9cm) PWd0.9 (0.7-1.1cm)LA Bdvjhq25 (18-58mL) LVDs2.4 (2.5-4.0cm)FS (%) 36.5 % LVEF (%)67.0 (>50%)LVEF (Sorenson's)59.55 % M-Mode DIMENSIONS Left Atrium (MM)3.95 (2.5-4.0cm)IVSd0.82 (0.7-1.1cm) Aortic Root3.37 (2.2-3.7cm)LVDd4.94 (4.0-5.6cm) Aortic Cusp Exc.1.77 (1.5-2.0cm)PWd0.88 (0.7-1.1cm) FS (%) 43 %LVDs2.83 (2.0-3.8cm) LVEF (%)70 (>50%) Mitral Valve MV E Aucbqtqf33.5cm/sMV A Xsvmbnwp65.8cm/sE/A ratio0.8 TDI Lateral E' Peak V8.96cm/sMedial E' Peak V7.45cm/sE/Lateral E'8.3 E/Medial E'10.0 LEFT VENTRICLE The left ventricle is normal size. There is normal left ventricular wall thickness. The left ventricular Sytolic function is normal. The left ventricular ejection fraction is within the normal range. There is normal LV segmental wall motion. Transmitral Doppler flow pattern is Grade I-abnormal relaxation pattern. Normal left atrial pressure by Tissue Doppler. RIGHT VENTRICLE The right ventricle is normal size. The right ventricular systolic function is normal. ATRIA The left atrium size is normal. The right atrium size is normal. AORTIC VALVE The aortic valve is mildly calcified but opens well. There is trace aortic regurgitation. There is no aortic valvular stenosis. MITRAL VALVE The mitral valve is normal in structure. Mitral regurgitation is trace to mild. TRICUSPID VALVE The tricuspid valve is normal in structure. There is trace tricuspid regurgitation. PULMONIC VALVE The pulmonary valve is normal in structure. There is trace pulmonic valvular regurgitation. GREAT VESSELS The aortic root is normal size. The aortic root displays mild to moderate sclerocalcific changes. The IVC is normal in size and collapses >50% with inspiration. PERICARDIAL EFFUSION There is no pericardial effusion. <Conclusion> The left ventricular Sytolic function is normal. There is normal LV segmental wall motion. Grade I diastolic dysfunction - abnormal relaxation pattern. Normal left atrial pressure by Tissue Doppler. The right ventricular systolic function is normal. The aortic valve is mildly calcified but opens well. There is trace aortic regurgitation. Trace to mild mitral, tricuspid and pulmonic regurgitation. The aortic root displays mild to moderate sclerocalcific changes. There is no pericardial effusion.
[2018-06-03 17:50] LABS: IRON 44 ug/dL (49-181)
[2018-06-03 17:59] LABS: % IRON SATURATION 18 (20-55); TOTAL IRON BINDING CAPACITY 245 ug/dL (250-450)
[2018-06-03 18:08] LABS: FOLATE > 20.0 ng/mL
--- NOTE | 2018-06-03 21:18 | CP.PCM.CON ---
History of Present Illness - History of Present Illness History of Present Illness: 72 years old Male honduran with PMH Reason For Consultation: B/L Pedal edema PMH Hypertension S/P Frontal Aneurysmal clipping-1996 [facility] IC bleed /[id number] Cholesterol Post zoster Infection CRI Oateoporosis does not like medication Anemia recent acute anemia, heart murmur, leg edema fluid retention undergoing evaluat ion Medications lisinopril metoprolol allopurinol furosemide Social non etoh non smoker lives with family very picky on foods Immunization refuses Preventative refuses colonoscopy - lately-due to worsening anemia- patient had chaged mind Present on Admission - Present on Admission Any Indicators Present on Admission: No History of DVT/PE: No History of Uncontrolled Diabetes: No Urinary Catheter: No Decubitus Ulcer Present: No Review of Systems - Constitutional Constitutional: Weakness, Other (no headache, no syncope ). absent: Anorexia (no anorexia but patient is very picky on food due to healthy beliefs ), Fatigue, Fever, Headache - EENT Eyes: absent: Other Visual Disturbances Ears: Dizziness (that happened after the fall) Nose/Mouth/Throat: absent: Nasal Congestion, Sinus Pressure - Cardiovascular Cardiovascular: Leg Edema, Pedal Edema. absent: Chest Pain (but reports pain on right side ribs), Syncope - Respiratory Respiratory: absent: Cough, Pain on Inspiration, Chest Congestion - Musculoskeletal Musculoskeletal: absent: Abnormal Gait (but is walks slowly ), Deformity, Joint Swelling, Stiffness - Integumentary Integumentary: absent: Rash, Sores, Jaundice - Neurological Neurological: Dizziness. absent: Abnormal Movements, Abnormal Speech, Memory Loss - Psychiatric Psychiatric: absent: Confusion, Depression - Endocrine Endocrine: absent: Fatigue, Palpitations, Polydipsia, Polyphagia, Polyuria - Hematologic/Lymphatic Hematologic: absent: Easy Bleeding, Easy Bruising Past Patient History - Past Medical History & Family History Past Medical History?: Yes - Past Social History Smoking Status: Never Smoked - CARDIAC Hx Hypertension: Yes - NEUROLOGICAL Other/Comment: anyeursm - PSYCHIATRIC Hx Substance Use: No - SURGICAL HISTORY Other/Comment: Brain surgery ,aneurysm, 1997 - ANESTHESIA Hx Anesthesia: No Hx Anesthesia Reactions: No Meds Allergies/Adverse Reactions: Allergies Allergy/AdvReac Type Severity Reaction Status Date / Time No Known Allergies Allergy Verified 06/02/18 09:24 Physical Exam - Constitutional Appears: Non-toxic (but looks quiet -looks slow-slower than before slow to answer but answers correctly and appropriately ) - Head Exam Head Exam: ATRAUMATIC, NORMOCEPHALIC - Eye Exam Eye Exam: absent: Nystagmus - ENT Exam ENT Exam: Mucous Membranes Dry - Respiratory Exam Respiratory Exam: Clear to Auscultation Bilateral, NORMAL BREATHING PATTERN - Cardiovascular Exam Cardiovascular Exam: REGULAR RHYTHM, Systolic Murmur - GI/Abdominal Exam GI & Abdominal Exam: Normal Bowel Sounds, Soft. absent: Tenderness (with left inguinal hernia non tender , reducible ) - Extremities Exam Extremities exam: Positive for: full ROM, normal inspection, pedal pulses present (with plus 2 edema uop to below the knee ) - Neurological Exam Neurological exam: Alert, Normal Gait (but walks slow ), Oriented x3, Reflexes Normal - Psychiatric Exam Psychiatric exam: Normal Affect, Normal Mood - Skin Skin Exam: Intact, Normal Color Past Patient History - Past Medical History & Family History Past Medical History?: Yes - Past Social History Smoking Status: Never Smoked - CARDIAC Hx Hypertension: Yes - NEUROLOGICAL Other/Comment: anyeursm - PSYCHIATRIC Hx Substance Use: No - SURGICAL HISTORY Other/Comment: Brain surgery ,aneurysm, 1997 - ANESTHESIA Hx Anesthesia: No Hx Anesthesia Reactions: No Meds Allergies/Adverse Reactions: Allergies Allergy/AdvReac Type Severity Reaction Status Date / Time No Known Allergies Allergy Verified 06/02/18 09:24 - Medications Medications: Current Medications Acetaminophen (Tylenol 325mg Tab) 650 mg PO Q6 PRN PRN Reason: Pain, moderate (4-7) Allopurinol (Zyloprim) 100 mg PO DAILY [facility] Last Admin: 06/03/18 11:00 Dose: 100 mg Ferrous Gluconate (Fergon) 324 mg PO TID [facility] Last Admin: 06/03/18 18:03 Dose: 324 mg Furosemide (Lasix) 20 mg PO DAILY [facility] Last Admin: 06/03/18 14:26 Dose: Not Given Lactulose (Enulose) 20 gm PO DAILY PRN PRN Reason: Constipation Last Admin: 06/03/18 20:21 Dose: 20 gm Losartan Potassium (Cozaar) 50 mg PO DAILY [facility] Last Admin: 06/03/18 11:01 Dose: 50 mg Metoprolol Tartrate (Lopressor) 50 mg PO DAILY [facility] Last Admin: 06/03/18 11:01 Dose: 50 mg Pantoprazole Sodium (Protonix Ec Tab) 40 mg PO DAILY [facility] Last Admin: 06/03/18 11:00 Dose: 40 mg Rosuvastatin Calcium (Crestor) 5 mg PO HS [facility] Last Admin: 06/02/18 21:56 Dose: 5 mg Results - Vital Signs Recent Vital Signs: Last Vital Signs Temp 99.1 F 06/03/18 15:00 Pulse 74 06/03/18 16:40 Resp 20 06/03/18 15:00 BP 172/91 H 06/03/18 15:00 Pulse Ox 100 06/03/18 15:00 - Labs Result Diagrams: 06/03/18 11:41 06/03/18 11:41 Labs: Laboratory Results - last 24 hr 06/03/18 06/03/18 06/03/18 11:41 11:41 16:42 WBC 4.1 L RBC 2.42 L Hgb 9.1 L Hct 26.4 L MCV 109.0 H MCH 37.6 H MCHC 34.5 RDW 15.6 H Plt Count 116 L D MPV 7.2 Neut % (Auto) 71.9 Lymph % (Auto) 17.3 L [place] % (Auto) 7.4 Eos % (Auto) 2.6 Baso % (Auto) 0.8 Neut # (Auto) 2.9 Lymph # (Auto) 0.7 L [place] # (Auto) 0.3 Eos # (Auto) 0.1 Baso # (Auto) 0.0 Differential Comment Retic Count 1.4 Haptoglobin Sodium 130 L Potassium 4.4 Chloride 94 L Carbon Dioxide 27 Anion Gap 14 BUN 21 H Creatinine 1.0 Est GFR ( Amer) > 60 Est GFR (Non-Af Amer) > 60 Random Glucose 97 Calcium 8.5 L Phosphorus 3.8 Magnesium 1.9 Iron TIBC % Saturation Ferritin Total Bilirubin 0.6 AST 33 ALT 30 Alkaline Phosphatase 40 Total Protein 6.0 L Albumin 3.6 Globulin 2.4 Albumin/Globulin Ratio 1.5 Vitamin B12 Folate 06/03/18 06/03/18 06/03/18 16:42 16:42 16:42 WBC RBC Hgb Hct MCV MCH MCHC RDW Plt Count MPV Neut % (Auto) Lymph % (Auto) [place] % (Auto) Eos % (Auto) Baso % (Auto) Neut # (Auto) Lymph # (Auto) [place] # (Auto) Eos # (Auto) Baso # (Auto) Differential Comment Retic Count Haptoglobin 34.6 Sodium Potassium Chloride Carbon Dioxide Anion Gap BUN Creatinine Est GFR ( Amer) Est GFR (Non-Af Amer) Random Glucose Calcium Phosphorus Magnesium Iron 44 L TIBC 245 L % Saturation 18 L Ferritin 248.0 Total Bilirubin AST ALT Alkaline Phosphatase Total Protein Albumin Globulin Albumin/Globulin Ratio Vitamin B12 776 Folate > 20.0 Assessment & Plan - Assessment and Plan (Free Text) Assessment: 72 Male admitted for pedal edema R/O CHF HTN Hx of Brain aneurysm Check ECHO - Date & Time Date: 06/02/18 Time: 19:35
[2018-06-04 07:48] LABS: BASO % 0.4 % (0.0-2.0); EOS # 0.1 K/uL (0.0-0.7); EOS % 2.2 % (0.0-4.0); HEMOGLOBIN 9.6 g/dL (12.0-18.0); LYMPH # 0.8 K/uL (1.0-4.3); MEAN CELL VOLUME 107.8 fL (80.0-94.0); MEAN CORPUSCULAR HEMOGLOBIN 37.5 pg (27.0-31.0); MEAN CORPUSCULAR HGB CONC 34.8 g/dL (33.0-37.0); MEAN PLATELET VOLUME 7.7 fL (7.2-11.7); MONO # 0.4 K/uL (0.0-0.8); MONO % 7.5 % (0.0-10.0); NEUT # 4.1 K/uL (1.8-7.0); NEUT % 75.9 % (50.0-75.0); NRBC % 0.1 % (0.0-2.0); RBC 2.56 Mil/uL (4.40-5.90); RED CELL DISTRIBUTION WIDTH 15.5 % (11.5-14.5); WHITE BLOOD COUNT 5.4 K/uL (4.8-10.8)
[2018-06-04 08:02] LABS: ALB/GLOB RATIO 1.3 (1.0-2.1); ALBUMIN 3.5 g/dL (3.5-5.0); ALT/SGPT 37 U/L (21-72); AST/SGOT 32 U/L (17-59); BLOOD UREA NITROGEN 24 mg/dL (9-20); CALCIUM 8.4 mg/dl (8.6-10.4); GFR NON-AFRICAN AMERICAN > 60
[2018-06-04] MEDS: Pantoprazole 40 mg EC Tab PO SCH (09:37)
--- NOTE | 2018-06-04 10:26 | RAD ---
Date of service: 06/03/2018 HISTORY: fall at home COMPARISON: No prior. TECHNIQUE: Chest PA and lateral views FINDINGS: LUNGS: No active pulmonary disease. PLEURA: Small bilateral pleural effusion. No pneumothorax. CARDIOVASCULAR: There is atherosclerotic calcification of thoracic aorta. Normal cardiac size. No pulmonary vascular congestion. OSSEOUS STRUCTURES: No significant abnormalities. VISUALIZED UPPER ABDOMEN: Normal. OTHER FINDINGS: None. IMPRESSION: Small bilateral pleural effusion. No acute infiltrate
--- NOTE | 2018-06-04 10:29 | CARD ---
APPROVED REPORT Date of service: 06/02/2018 EKG Measurement Heart [id number] <Conclusion> Normal sinus rhythm Normal ECG
--- NOTE | 2018-06-04 14:50 | CP.PCM.PN ---
Subjective - Date & Time of Evaluation Date of Evaluation: 06/04/18 Time of Evaluation: 21:00 - Subjective Subjective: chart reiew lab- sodium went low again still anemia despite iron, been on iron 325 TID off IVF due to some slight congestion heard at lung base left on lasix BP on the high side patient seen awake, stayed mostly in bed, but is ambulatory- education came and encouraged patient to walk plan for home discussion -but labs showed persistently low low sodium. and anemia, with history of fall discussion with Hematology since patient is not going home yet Gastro discussion Objective - Vital Signs/Intake and Output Vital Signs (last 24 hours): Temp Pulse Resp BP Pulse Ox 98.2 F 66 20 175/71 H 98 06/04/18 07:00 06/04/18 07:00 06/04/18 07:00 06/04/18 09:37 06/04/18 07:00 - Medications Medications: Current Medications Acetaminophen (Tylenol 325mg Tab) 650 mg PO Q6 PRN PRN Reason: Pain, moderate (4-7) Allopurinol (Zyloprim) 100 mg PO DAILY [facility] Last Admin: 06/04/18 09:37 Dose: 100 mg Ferrous Gluconate (Fergon) 324 mg PO TID [facility] Last Admin: 06/04/18 09:37 Dose: 324 mg Furosemide (Lasix) 20 mg PO DAILY [facility] Last Admin: 06/04/18 09:37 Dose: 20 mg Lactulose (Enulose) 20 gm PO DAILY PRN PRN Reason: Constipation Last Admin: 06/03/18 20:21 Dose: 20 gm Losartan Potassium (Cozaar) 50 mg PO DAILY [facility] Last Admin: 06/04/18 09:36 Dose: 50 mg Metoprolol Tartrate (Lopressor) 50 mg PO DAILY [facility] Last Admin: 06/04/18 09:37 Dose: 50 mg Pantoprazole Sodium (Protonix Ec Tab) 40 mg PO DAILY [facility] Last Admin: 06/04/18 09:37 Dose: 40 mg Rosuvastatin Calcium (Crestor) 5 mg PO HS [facility] Last Admin: 06/03/18 21:41 Dose: 5 mg - Labs Labs: 06/04/18 07:16 06/04/18 07:16 - Constitutional Appears: Non-toxic, No Acute Distress, Other (conversant, oriented x 3, chose to stay in bed since admission- was afraid to move around ) - Head Exam Head Exam: ATRAUMATIC, NORMOCEPHALIC - Eye Exam Eye Exam: Normal appearance. absent: Nystagmus, Periorbital swelling - ENT Exam ENT Exam: Mucous Membranes Moist - Neck Exam Neck Exam: Full ROM. absent: Tenderness - Respiratory Exam Respiratory Exam: Clear to Ausculation Bilateral, NORMAL BREATHING PATTERN - Cardiovascular Exam Cardiovascular Exam: REGULAR RHYTHM, Murmur (loud) - GI/Abdominal Exam GI & Abdominal Exam: Soft, Normal Bowel Sounds (left inguinal hernia no complaints non tender , reducible ). absent: Tenderness - Extremities Exam Extremities Exam: Full ROM. absent: Pedal Edema (since he was in bed ) - Back Exam Back Exam: Full ROM (upper back cervical flexural position but can straighten ). absent: rash noted, tenderness - Neurological Exam Neurological Exam: Alert, Awake, Normal Gait, Oriented x3 - Psychiatric Exam Psychiatric exam: Normal Affect, Normal Mood - Skin Skin Exam: Intact, Normal Color Assessment and Plan - Assessment and Plan (Free Text) Assessment: Patient who was admitted for fall with abnormal aboratory findings persistent hyponatremia- despite IVF and liberal salt intake now( patient had very strict low sodium diet at home ) IVF had improved a bit , but has to stop IVF due to congestion, CXR mild effusion , symptomatic Persistent Anemia- despite Iron supplementation, further discussion with hem low platelets no bleeding Echo normal but has persistent leg edema that needed to be on lasix Hypertension- recent readings uncontrolled- will adjust medication Due to history of falls, and abnormal lab -Hyponatremia, anemia, -will keep patient for now, will repeat labs, consulted Heme and gastro
[2018-06-04 16:57] LABS: BASO % 0.6 % (0.0-2.0); EOS # 0.1 K/uL (0.0-0.7); EOS % 1.9 % (0.0-4.0); HEMOGLOBIN 9.8 g/dL (12.0-18.0); LYMPH % 15.6 % (20.0-40.0); MEAN CELL VOLUME 108.1 fL (80.0-94.0); MEAN CORPUSCULAR HEMOGLOBIN 37.4 pg (27.0-31.0); MEAN CORPUSCULAR HGB CONC 34.6 g/dL (33.0-37.0); MEAN PLATELET VOLUME 8.8 fL (7.2-11.7); MONO # 0.5 K/uL (0.0-0.8); MONO % 7.3 % (0.0-10.0); NEUT # 4.7 K/uL (1.8-7.0); NEUT % 74.6 % (50.0-75.0); NRBC % 0.1 % (0.0-2.0); RBC 2.61 Mil/uL (4.40-5.90); RED CELL DISTRIBUTION WIDTH 15.4 % (11.5-14.5); WHITE BLOOD COUNT 6.2 K/uL (4.8-10.8)
[2018-06-04 17:10] LABS: ALB/GLOB RATIO 1.5 (1.0-2.1); ALBUMIN 3.8 g/dL (3.5-5.0); ALT/SGPT 29 U/L (21-72); AST/SGOT 38 U/L (17-59); BLOOD UREA NITROGEN 28 mg/dL (9-20); CALCIUM 8.1 mg/dl (8.6-10.4); GFR NON-AFRICAN AMERICAN > 60
[2018-06-04] MEDS ORDERED: Sodium Chloride 0.9% 500 ML IV SCH (20:15)
[2018-06-04] MEDS: Sodium Chloride 0.9% 1,000 ML IV SCH (20:54)
[2018-06-05] MEDS ORDERED: Bisacodyl 5mg EC Tab PO ONE (07:51)
[2018-06-05 08:58] LABS: HEMOGLOBIN 9.5 g/dL (12.0-18.0); MEAN CELL VOLUME 108.4 fL (80.0-94.0); MEAN CORPUSCULAR HEMOGLOBIN 38.3 pg (27.0-31.0); MEAN CORPUSCULAR HGB CONC 35.3 g/dL (33.0-37.0); RBC 2.47 Mil/uL (4.40-5.90); RED CELL DISTRIBUTION WIDTH 15.3 % (11.5-14.5); WHITE BLOOD COUNT 4.7 K/uL (4.8-10.8)
[2018-06-05 09:12] LABS: IRON 53 ug/dL (49-181)
[2018-06-05 09:15] LABS: ALB/GLOB RATIO 1.5 (1.0-2.1); ALBUMIN 3.6 g/dL (3.5-5.0); ALT/SGPT 26 U/L (21-72); AST/SGOT 32 U/L (17-59); BLOOD UREA NITROGEN 23 mg/dL (9-20); CALCIUM 8.2 mg/dl (8.6-10.4); GFR NON-AFRICAN AMERICAN > 60
[2018-06-05 09:21] LABS: % IRON SATURATION 23 (20-55); TOTAL IRON BINDING CAPACITY 228 ug/dL (250-450)
--- NOTE | 2018-06-05 09:23 | CP.PCM.PN ---
Subjective - Date & Time of Evaluation Date of Evaluation: 06/04/18 Time of Evaluation: 16:10 - Subjective Subjective: Patient seen and evaluated. More comfortable Pedal edema resolved PMHx: As stated above PSHx: Frontal Aneurysmal Clipping Allergies: NKDA SocialHx: Denies tobacco, EtoH, and Illicit Drug Use FamHx: Non-Cont. Meds: As per APR. PMD: Dr. Yang. Review of Systems - Review of Systems All systems: reviewed and no additional remarkable complaints except (As per HPI) Physical Exam - Constitutional Appears: Non-toxic, No Acute Distress, Cachectic, Chronically Ill - Head Exam Head Exam: ATRAUMATIC, NORMAL INSPECTION, NORMOCEPHALIC - Eye Exam Eye Exam: EOMI, Normal appearance - ENT Exam ENT Exam: Mucous Membranes Moist - Cardiovascular Exam Cardiovascular Exam: RRR, +S1, +S2 - GI/Abdominal Exam GI & Abdominal Exam: Normal Bowel Sounds, Soft. absent: Tenderness - Extremities Exam Extremities exam: Positive for: normal capillary refill. Negative for: pedal edema - Neurological Exam Neurological exam: Alert - Psychiatric Exam Psychiatric exam: Normal Affect, Normal Mood - Skin Skin Exam: Dry, Intact, Normal Color, Warm Assessment & Plan - Assessment and Plan (Free Text) Assessment: 72 year old male with PMHx of HTN, Hemmoraghic Stroke, Osteoporosis, and anemia who was admitted to [facility] for evaluation and treatment of mechanical fall. Cardiology Consulted for evaluation and treatment of persistent lower Ext. Edema now resolved with Lasix Plan: Lower Ext. Edema ECHO (06/03/18): Normal EF, No major valve issues Continue Lasix 20mg PO Daily Compression Stocking Macrocytic Anemia Anemia workup, F/U Objective - Vital Signs/Intake and Output Vital Signs (last 24 hours): Temp Pulse Resp BP Pulse Ox 98.1 F 61 20 155/67 H 95 06/05/18 07:10 06/05/18 07:10 06/05/18 07:10 06/05/18 07:10 06/05/18 07:10 Intake and Output: 06/05/18 06/05/18 06:59 18:59 Intake Total 460 Output Total 650 Balance -190 - Medications Medications: Current Medications Acetaminophen (Tylenol 325mg Tab) 650 mg PO Q6 PRN PRN Reason: Pain, moderate (4-7) Allopurinol (Zyloprim) 100 mg PO DAILY [facility] Last Admin: 06/04/18 09:37 Dose: 100 mg Ferrous Gluconate (Fergon) 324 mg PO TID [facility] Last Admin: 06/04/18 17:43 Dose: 324 mg Furosemide (Lasix) 20 mg PO DAILY [facility] Last Admin: 06/04/18 09:37 Dose: 20 mg Sodium Chloride (Sodium Chloride 0.9%) 1,000 mls @ 70 mls/hr IV .[id number] [facility] Last Admin: 06/04/18 20:54 Dose: 70 mls/hr Lactulose (Enulose) 20 gm PO DAILY PRN PRN Reason: Constipation Last Admin: 06/03/18 20:21 Dose: 20 gm Losartan Potassium (Cozaar) 100 mg PO DAILY [facility] Metoprolol Tartrate (Lopressor) 50 mg PO DAILY [facility] Last Admin: 06/04/18 09:37 Dose: 50 mg Pantoprazole Sodium (Protonix Ec Tab) 40 mg PO DAILY [facility] Last Admin: 06/04/18 09:37 Dose: 40 mg Rosuvastatin Calcium (Crestor) 5 mg PO HS [facility] Last Admin: 06/04/18 22:12 Dose: 5 mg - Labs Labs: 06/05/18 08:40 06/05/18 08:40
[2018-06-05] MEDS: Pantoprazole 40 mg EC Tab PO SCH (09:50)
[2018-06-05] MEDS: Sodium Chloride 0.9% 1,000 ML IV SCH (10:29)
--- NOTE | 2018-06-05 11:39 | CP.PCM.PN ---
Subjective - Date & Time of Evaluation Date of Evaluation: 06/05/18 Time of Evaluation: 11:37 - Subjective Subjective: chart review labs- still low hemoglobin Sodium went up to 129 with IVF Vitals= BP better , med was adjusted discussion with heme Patient seen, by bedside- education- on getting out of bed - Discussion- anemia persists despite iron supplementation- for endoscopy Sodium- up and down- no cough but patient seems slow than befor e om PT Objective - Vital Signs/Intake and Output Vital Signs (last 24 hours): Temp Pulse Resp BP Pulse Ox 98.1 F 61 20 134/74 95 06/05/18 07:10 06/05/18 07:10 06/05/18 07:10 06/05/18 09:51 06/05/18 07:10 Intake and Output: 06/05/18 06/05/18 06:59 18:59 Intake Total 460 Output Total 650 Balance -190 - Medications Medications: Current Medications Acetaminophen (Tylenol 325mg Tab) 650 mg PO Q6 PRN PRN Reason: Pain, moderate (4-7) Allopurinol (Zyloprim) 100 mg PO DAILY [facility] Last Admin: 06/05/18 09:50 Dose: 100 mg Ferrous Gluconate (Fergon) 324 mg PO TID [facility] Last Admin: 06/05/18 09:50 Dose: 324 mg Furosemide (Lasix) 20 mg PO DAILY [facility] Last Admin: 06/05/18 09:51 Dose: 20 mg Sodium Chloride (Sodium Chloride 0.9%) 1,000 mls @ 70 mls/hr IV .[id number] [facility] Last Admin: 06/05/18 10:29 Dose: 70 mls/hr Lactulose (Enulose) 20 gm PO DAILY PRN PRN Reason: Constipation Last Admin: 06/03/18 20:21 Dose: 20 gm Losartan Potassium (Cozaar) 100 mg PO DAILY [facility] Last Admin: 06/05/18 09:52 Dose: 100 mg Metoprolol Tartrate (Lopressor) 50 mg PO DAILY [facility] Last Admin: 06/05/18 09:51 Dose: 50 mg Pantoprazole Sodium (Protonix Ec Tab) 40 mg PO DAILY [facility] Last Admin: 06/05/18 09:50 Dose: 40 mg Rosuvastatin Calcium (Crestor) 5 mg PO HS [facility] Last Admin: 06/04/18 22:12 Dose: 5 mg - Labs Labs: 06/05/18 08:40 06/05/18 08:40 - Constitutional Appears: Non-toxic, No Acute Distress - Head Exam Head Exam: ATRAUMATIC, NORMOCEPHALIC - Eye Exam Eye Exam: Normal appearance. absent: Nystagmus - ENT Exam ENT Exam: Mucous Membranes Moist - Respiratory Exam Respiratory Exam: Clear to Ausculation Bilateral, NORMAL BREATHING PATTERN - Cardiovascular Exam Cardiovascular Exam: REGULAR RHYTHM, Murmur - Back Exam Back Exam: Full ROM. absent: rash noted - Neurological Exam Neurological Exam: Alert, Awake, Normal Gait, Oriented x3 - Psychiatric Exam Psychiatric exam: Normal Affect, Normal Mood - Skin Skin Exam: Intact, Normal Color Assessment and Plan - Assessment and Plan (Free Text) Assessment: patient with history of fall- found to have Acute Anemia that does not improve with iron supplementation- for endoscopy- heme consulted Hyponatremia- IVf seems to be helping Hypertension- adjusting medication Cholesterol- continue meds History of Brain Aneurysmal/post surgery no acute symptoms follow up labs endoscopy tomorrow plan for home accordingly
[2018-06-05 11:56] LABS: INR 1.2; PROTHROMBIN TIME 12.8 SECONDS (9.7-12.2)
--- NOTE | 2018-06-05 20:49 | CP.PCM.CON ---
History of Present Illness - History of Present Illness History of Present Illness: This patient is a 72 year old male with PMHx of HTN, Hemorrhagic Stroke, Osteoporosis, and anemia who was admitted to [facility] for evaluation and treatment of fall. Cardiology was consulted on this case for evaluation and treatment of persistent lower extremity edema despite lasix administration. Overall he states he feels better than yesterday. He states his swelling of the leg improved. The patient is comfortable, denies SOB, palpitations. Unclear if he has a history of weight loss. He was found to be pancytopenic on admission, stable without fevers or night sweats Past Patient History - Past Medical History & Family History Past Medical History?: Yes - Past Social History Smoking Status: Never Smoked - CARDIAC Hx Hypertension: Yes - NEUROLOGICAL Other/Comment: anyeursm - PSYCHIATRIC Hx Substance Use: No - SURGICAL HISTORY Other/Comment: Brain surgery ,aneurysm, 1997 - ANESTHESIA Hx Anesthesia: No Hx Anesthesia Reactions: No Meds Allergies/Adverse Reactions: Allergies Allergy/AdvReac Type Severity Reaction Status Date / Time No Known Allergies Allergy Verified 06/02/18 09:24 - Medications Medications: Current Medications Acetaminophen (Tylenol 325mg Tab) 650 mg PO Q6 PRN PRN Reason: Pain, moderate (4-7) Allopurinol (Zyloprim) 100 mg PO DAILY [facility] Last Admin: 06/05/18 09:50 Dose: 100 mg Furosemide (Lasix) 20 mg PO DAILY [facility] Last Admin: 06/05/18 09:51 Dose: 20 mg Sodium Chloride (Sodium Chloride 0.9%) 1,000 mls @ 70 mls/hr IV .[id number] [facility] Last Admin: 06/05/18 10:29 Dose: 70 mls/hr Lactulose (Enulose) 20 gm PO DAILY PRN PRN Reason: Constipation Last Admin: 06/03/18 20:21 Dose: 20 gm Losartan Potassium (Cozaar) 100 mg PO DAILY [facility] Last Admin: 06/05/18 09:52 Dose: 100 mg Metoprolol Tartrate (Lopressor) 50 mg PO DAILY [facility] Last Admin: 06/05/18 09:51 Dose: 50 mg Pantoprazole Sodium (Protonix Ec Tab) 40 mg PO DAILY [facility] Last Admin: 06/05/18 09:50 Dose: 40 mg Rosuvastatin Calcium (Crestor) 5 mg PO HS [facility] Last Admin: 06/04/18 22:12 Dose: 5 mg Results - Vital Signs Recent Vital Signs: Last Vital Signs Temp 98 F 06/05/18 15:00 Pulse 64 06/05/18 15:00 Resp 20 06/05/18 15:00 BP 145/75 06/05/18 15:00 Pulse Ox 100 06/05/18 15:00 - Labs Result Diagrams: 06/05/18 08:40 06/05/18 08:40 Labs: Laboratory Results - last 24 hr 06/05/18 06/05/18 06/05/18 08:40 08:40 08:40 WBC 4.7 L RBC 2.47 L Hgb 9.5 L Hct 26.7 L MCV 108.4 H MCH 38.3 H MCHC 35.3 RDW 15.3 H Plt Count 127 L D MPV 7.0 L ESR Retic Count PT INR APTT Sodium 129 L Potassium 3.9 Chloride 92 L Carbon Dioxide 27 Anion Gap 13 BUN 23 H Creatinine 1.0 Est GFR ( Amer) > 60 Est GFR (Non-Af Amer) > 60 POC Glucose (mg/dL) Random Glucose 144 H D Calcium 8.2 L Iron 53 TIBC 228 L % Saturation 23 Ferritin 244.0 Total Bilirubin 0.5 AST 32 ALT 26 Alkaline Phosphatase 44 Lactate Dehydrogenase 897 H Total Protein 6.1 L Albumin 3.6 Globulin 2.4 Albumin/Globulin Ratio 1.5 Carcinoembryonic Ag 4.3 H 06/05/18 06/05/18 06/05/18 08:42 10:57 11:31 WBC RBC Hgb Hct MCV MCH MCHC RDW Plt Count MPV ESR 20 H Retic Count 1.5 PT 12.8 H INR 1.2 APTT 28.0 Sodium Potassium Chloride Carbon Dioxide Anion Gap BUN Creatinine Est GFR ( Amer) Est GFR (Non-Af Amer) POC Glucose (mg/dL) 170 H Random Glucose Calcium Iron TIBC % Saturation Ferritin Total Bilirubin AST ALT Alkaline Phosphatase Lactate Dehydrogenase Total Protein Albumin Globulin Albumin/Globulin Ratio Carcinoembryonic Ag Assessment & Plan (1) Pancytopenia Assessment and Plan: 72 yo man with pancytopenia, anemia, work up, so far showing normal B12 and iron studies, but elevated LDH levels. No obvious blood loss has been reported by the nursing staff. Plan- Will check SPEP, WILD, Ultrasound of liver and spleen. May need bone marrow biopsy if GI work up negative Status: Acute
--- NOTE | 2018-06-05 21:54 | CP.PCM.PN ---
Subjective - Date & Time of Evaluation Date of Evaluation: 06/05/18 Time of Evaluation: 16:35 - Subjective Subjective: Patient seen and evaluated. More comfortable Pedal edema resolved PMHx: As stated above PSHx: Frontal Aneurysmal Clipping Allergies: NKDA SocialHx: Denies tobacco, EtoH, and Illicit Drug Use FamHx: Non-Cont. Meds: As per APR. PMD: Dr. Yang. Review of Systems - Review of Systems All systems: reviewed and no additional remarkable complaints except (As per HPI) Physical Exam - Constitutional Appears: Non-toxic, No Acute Distress, Cachectic, Chronically Ill - Head Exam Head Exam: ATRAUMATIC, NORMAL INSPECTION, NORMOCEPHALIC - Eye Exam Eye Exam: EOMI, Normal appearance - ENT Exam ENT Exam: Mucous Membranes Moist - Cardiovascular Exam Cardiovascular Exam: RRR, +S1, +S2 - GI/Abdominal Exam GI & Abdominal Exam: Normal Bowel Sounds, Soft. absent: Tenderness - Extremities Exam Extremities exam: Positive for: normal capillary refill. Negative for: pedal edema - Neurological Exam Neurological exam: Alert - Psychiatric Exam Psychiatric exam: Normal Affect, Normal Mood - Skin Skin Exam: Dry, Intact, Normal Color, Warm Assessment & Plan - Assessment and Plan (Free Text) Assessment: 72 year old male with PMHx of HTN, Hemmoraghic Stroke, Osteoporosis, and anemia who was admitted to [facility] for evaluation and treatment of mechanical fall. Cardiology Consulted for evaluation and treatment of persistent lower Ext. Edema now resolved with Lasix Plan: Lower Ext. Edema ECHO (06/03/18): Normal EF, No major valve issues Continue Lasix 20mg PO Daily Compression Stocking Macrocytic Anemia Anemia workup, F/U Objective - Vital Signs/Intake and Output Vital Signs (last 24 hours): Temp Pulse Resp BP Pulse Ox 98 F 64 20 145/75 100 06/05/18 15:00 06/05/18 15:00 06/05/18 15:00 06/05/18 15:00 06/05/18 15:00 Intake and Output: 06/05/18 06/06/18 18:59 06:59 Intake Total 860 Output Total 500 Balance 360 - Medications Medications: Current Medications Acetaminophen (Tylenol 325mg Tab) 650 mg PO Q6 PRN PRN Reason: Pain, moderate (4-7) Allopurinol (Zyloprim) 100 mg PO DAILY [facility] Last Admin: 06/05/18 09:50 Dose: 100 mg Furosemide (Lasix) 20 mg PO DAILY [facility] Last Admin: 06/05/18 09:51 Dose: 20 mg Sodium Chloride (Sodium Chloride 0.9%) 1,000 mls @ 70 mls/hr IV .[id number] [facility] Last Admin: 06/05/18 10:29 Dose: 70 mls/hr Lactulose (Enulose) 20 gm PO DAILY PRN PRN Reason: Constipation Last Admin: 06/03/18 20:21 Dose: 20 gm Losartan Potassium (Cozaar) 100 mg PO DAILY [facility] Last Admin: 06/05/18 09:52 Dose: 100 mg Metoprolol Tartrate (Lopressor) 50 mg PO DAILY [facility] Last Admin: 06/05/18 09:51 Dose: 50 mg Pantoprazole Sodium (Protonix Ec Tab) 40 mg PO DAILY [facility] Last Admin: 06/05/18 09:50 Dose: 40 mg Rosuvastatin Calcium (Crestor) 5 mg PO HS [facility] Last Admin: 06/04/18 22:12 Dose: 5 mg - Labs Labs: 06/05/18 08:40 06/05/18 08:40 PT 12.8 SECONDS (9.7-12.2) H 06/05/18 11:31 INR 1.2 06/05/18 11:31 APTT 28.0 SECONDS (21-34) 06/05/18 11:31
[2018-06-06] MEDS: Sodium Chloride 0.9% 1,000 ML IV SCH (02:25)
--- NOTE | 2018-06-06 06:16 | CON ---
DATE: 06/05/2018 LOCATION: 664, bed [facility] was called for GI consultation by the admitting medical team. The patient is seen and fully examined on 06/05/2018 for GI consultation. The entire chart is reviewed including but not limited to the most recent lab and radiology study results, current and the previous medication lists, current and the previous medical events, allergy to medication list as well as all the available current and the previous medical records. Please it has to be mentioned on record that this case was discussed at length yesterday with Dr. Erik Gray, the sap plant maintenance consultant on the case. HISTORY OF PRESENT ILLNESS: This is a 72-year-old male who was admitted to the hospital through the emergency room post fall with left hip and left ribs pain and was found to have no evidence of fracture; however, the patient has subsequent drop of his hemoglobin and hematocrit since admission, but denied any known history of active GI bleeding. No chest pain or palpitation, but generalized weakness and malaise. PAST MEDICAL HISTORY: Including mainly, but not limited to, 1. Hypertension. 2. Hemorrhagic stroke by history. 3. Peptic ulcer disease. 4. Osteoporosis. 5. Chronic lower extremity edema syndrome. 6. Status post frontal aneurysmal clipping as per record. FAMILY HISTORY: Unrelated to specific GI disorder. SOCIAL HISTORY: No reported recent history of cigarette smoking or alcohol intake. CURRENT MEDICATIONS: Post-admission medication list reviewed. LABORATORY DATA: The most recent reported lab results yesterday showed hemoglobin of 9.8, hematocrit 28.2 with thrombocytopenia of 71, white blood cells of 6.2 with subsequent drop of sodium to 121, BUN is 28 with normal creatinine, calcium 8.1 with low iron studies. Cancer markers are still pending. PHYSICAL EXAMINATION: GENERAL: A 72-year-old male, appeared to be somewhat sleepy. VITAL SIGNS: Afebrile with a pulse of 64, respiratory rate 20 to 22, and blood pressure 152/60. HEENT: Pale, dry oral mucous membranes, nonicteric sclerae. LUNGS: Few scattered crepitation. Decreased air entry at bases. HEART: Positive S1 and S2. ABDOMEN: Soft with mild generalized tenderness. No mass or organomegaly. No rebound tenderness or guarding, but midepigastric and left lower quadrant tenderness. EXTREMITIES: With lower extremity edematous changes. No clubbing or cyanosis. NEUROLOGIC: No reported new neurological deficits, sensory or motor. No reported new focal deficits reported. IMPRESSION: 1. Anemia, to rule out upper versus lower gastrointestinal blood loss versus occult gastrointestinal malignancy. It is iron deficiency anemia. The possibility of anemia is secondary to chronic disease was raised. 2. Multiple past medical histories as mentioned above. SUGGESTIONS: 1. Agree with your plan. 2. Endoscopic evaluation of the GI tract when the patient is more stable clinically. Guaiac all the stools daily x3. Antireflux measures. Sectional abdominal and pelvic CAT scan. 3 Cancer markers, results are pending. Further recommendation to follow post-endoscopic evaluation of the GI tract. Javed Martin MD
--- NOTE | 2018-06-06 07:44 | CP.PCM.PN ---
Subjective - Date & Time of Evaluation Date of Evaluation: 06/06/18 Time of Evaluation: 01:30 - Subjective Subjective: chart review no unusual event notes for endoscopy labs noted sodium 129 still hypotonic posm 272 hemoglobin stays low Heme notes appreciated carcinoembronic antigen high patient seen had endoscopy this morning BP noted -very high post op patient could not believe, has no symptoms further discussion of codition as well as to daughter hemoglobin is not improving despite supplementation, even went down today Objective - Vital Signs/Intake and Output Vital Signs (last 24 hours): Temp Pulse Resp BP Pulse Ox 98.3 F 57 L 18 158/71 H 98 06/06/18 04:25 06/06/18 04:25 06/06/18 04:25 06/06/18 04:25 06/06/18 04:25 Intake and Output: 06/06/18 06/06/18 06:59 18:59 Intake Total 960 Output Total 700 Balance 260 - Medications Medications: Current Medications Acetaminophen (Tylenol 325mg Tab) 650 mg PO Q6 PRN PRN Reason: Pain, moderate (4-7) Allopurinol (Zyloprim) 100 mg PO DAILY [facility] Last Admin: 06/05/18 09:50 Dose: 100 mg Sodium Chloride (Sodium Chloride 0.9%) 1,000 mls @ 70 mls/hr IV .[id number] [facility] Last Admin: 06/06/18 02:25 Dose: 70 mls/hr Lactulose (Enulose) 20 gm PO DAILY PRN PRN Reason: Constipation Last Admin: 06/03/18 20:21 Dose: 20 gm Losartan Potassium (Cozaar) 100 mg PO DAILY [facility] Last Admin: 06/05/18 09:52 Dose: 100 mg Metoprolol Tartrate (Lopressor) 50 mg PO DAILY [facility] Last Admin: 06/05/18 09:51 Dose: 50 mg Pantoprazole Sodium (Protonix Ec Tab) 40 mg PO DAILY [facility] Last Admin: 06/05/18 09:50 Dose: 40 mg Rosuvastatin Calcium (Crestor) 5 mg PO HS [facility] Last Admin: 06/05/18 22:29 Dose: 5 mg - Labs Labs: 06/05/18 08:40 06/05/18 08:40 PT 12.8 SECONDS (9.7-12.2) H 06/05/18 11:31 INR 1.2 06/05/18 11:31 APTT 28.0 SECONDS (21-34) 06/05/18 11:31 - Constitutional Appears: No Acute Distress (conversant alert oriented x 3 ) - Head Exam Head Exam: ATRAUMATIC, NORMOCEPHALIC - Eye Exam Eye Exam: Normal appearance. absent: Nystagmus - ENT Exam ENT Exam: Mucous Membranes Moist - Respiratory Exam Respiratory Exam: Clear to Ausculation Bilateral, NORMAL BREATHING PATTERN - Cardiovascular Exam Cardiovascular Exam: REGULAR RHYTHM, Murmur - GI/Abdominal Exam GI & Abdominal Exam: Soft, Normal Bowel Sounds. absent: Tenderness - Extremities Exam Extremities Exam: Full ROM, Normal Inspection. absent: Pedal Edema - Neurological Exam Neurological Exam: Alert, Awake, Normal Gait, Oriented x3 - Psychiatric Exam Psychiatric exam: Normal Affect, Normal Mood - Skin Skin Exam: Intact, Normal Color Assessment and Plan - Assessment and Plan (Free Text) Assessment: Patient with PMH history of Hypertension who has been stable, with recent Bp becoming uncontrolled and more pronounced after surgery- possibly anesthesia effect, continue to monitor, medication adjustment , patient asymptomatic Persistent Anemia despite supplementation, no gross bleeding - for colonoscopy tomorrow Persistent Hyponatremia- hypotonic, calculated posmolality 272 SIADH etiology ?, had episode of dehydration, labs- uric acid,urine sodium, urine osm , tsh pending , ct abdomen scheduled further discussion with family encouraged out of bed
[2018-06-06 07:57] LABS: BASO % 0.5 % (0.0-2.0); EOS # 0.2 K/uL (0.0-0.7); EOS % 3.6 % (0.0-4.0); HEMOGLOBIN 8.9 g/dL (12.0-18.0); LYMPH % 20.4 % (20.0-40.0); MEAN CELL VOLUME 108.7 fL (80.0-94.0); MEAN CORPUSCULAR HEMOGLOBIN 38.3 pg (27.0-31.0); MEAN CORPUSCULAR HGB CONC 35.3 g/dL (33.0-37.0); MEAN PLATELET VOLUME 7.2 fL (7.2-11.7); MONO # 0.4 K/uL (0.0-0.8); MONO % 8.1 % (0.0-10.0); NEUT # 3.2 K/uL (1.8-7.0); NEUT % 67.4 % (50.0-75.0); NRBC % 0.1 % (0.0-2.0); RBC 2.33 Mil/uL (4.40-5.90); RED CELL DISTRIBUTION WIDTH 15.5 % (11.5-14.5); WHITE BLOOD COUNT 4.7 K/uL (4.8-10.8)
[2018-06-06 08:09] LABS: BLOOD UREA NITROGEN 24 mg/dL (9-20); CALCIUM 8.2 mg/dl (8.6-10.4); GFR NON-AFRICAN AMERICAN 59
[2018-06-06] MEDS ORDERED: Iohexol 240 (50 ml) PO ONE (08:45)
--- NOTE | 2018-06-06 09:03 | US ---
Date of service: 06/06/2018 HISTORY: pancytopenia, r/o splenomegaly COMPARISON: None. TECHNIQUE: Grayscale imaging was performed. FINDINGS: LIVER: Measures 12.9 cm. There is diffuse increased echogenicity of the liver parenchyma. There are multiple simple cysts, the largest in the right hepatic lobe measures 1.5 x 1.5 x 1.5 cm.. No intrahepatic bile duct dilatation. GALLBLADDER: There are no gallstones, wall thickening or pericholecystic fluid. The sonographic Brock's sign is negative. COMMON BILE DUCT: Measures 6.7 mm. No stones. No dilatation. PANCREAS: Unremarkable as visualized. No mass. No ductal dilatation. RIGHT KIDNEY: Measures 8.6cm. Diffuse increased echogenicity. No calculus, mass, or hydronephrosis. There is a 2.6 x 2.2 x 2.1 cm simple cyst in the interpolar region. LEFT KIDNEY: Measures 8.3cm. Diffuse increased echogenicity. No calculus, mass, or hydronephrosis. There is a 1.0 x 0.9 x 0.9 cm simple cyst in the lower pole. SPLEEN: Normal in size and contour. No mass. AORTA: No aneurysmal dilatation. IVC: Unremarkable. OTHER FINDINGS: None. IMPRESSION: 1. Fatty liver. 2. Multiple simple cysts in the liver, the largest in the right hepatic lobe measures 1.5 cm. 3. Bilateral small kidneys with chronic renal parenchymal disease. 4. No evidence of splenomegaly as clinically questioned.
[2018-06-06] MEDS: Pantoprazole 40 mg EC Tab PO SCH (09:05)
[2018-06-06] MEDS ORDERED: Lactated Ringer's 1,000 ML IV ONE (10:15)
[2018-06-06] MEDS ORDERED: Etomidate 20 mg/10ml Inj IV ONE (10:21)
[2018-06-06 11:22] LABS: URIC ACID 3.5 mg/dL (3.5-8.5)
[2018-06-06] MEDS ORDERED: Peg-Electrolyte Oral Soln 4L (Golytely) PO ONE (11:45)
[2018-06-06] MEDS ORDERED: Magnesium Citrate Oral SOL (300 ml) PO ONE ×3 (16:00→20:00)
[2018-06-06] MEDS ORDERED: Bisacodyl 5mg EC Tab PO ONE (17:00)
--- NOTE | 2018-06-06 22:52 | CP.PCM.PN ---
Subjective - Date & Time of Evaluation Date of Evaluation: 06/06/18 Time of Evaluation: 13:20 - Subjective Subjective: Patient seen and evaluated No cardiac events noted Objective - Vital Signs/Intake and Output Vital Signs (last 24 hours): Temp Pulse Resp BP Pulse Ox 98.6 F 76 20 180/70 H 99 06/06/18 15:25 06/06/18 17:00 06/06/18 15:25 06/06/18 15:25 06/06/18 15:25 Intake and Output: 06/06/18 06/07/18 18:59 06:59 Intake Total 440 Balance 440 - Medications Medications: Current Medications Acetaminophen (Tylenol 325mg Tab) 650 mg PO Q6 PRN PRN Reason: Pain, moderate (4-7) Allopurinol (Zyloprim) 100 mg PO DAILY [facility] Last Admin: 06/06/18 09:05 Dose: 100 mg Amlodipine Besylate (Norvasc) 5 mg PO DAILY [facility] Last Admin: 06/06/18 14:40 Dose: 5 mg Bisacodyl (Dulcolax) 5 mg PO ONCE ONE Stop: 06/07/18 06:01 Hydralazine HCl (Apresoline) 10 mg PO QID [facility] Last Admin: 06/06/18 21:56 Dose: 10 mg Lactulose (Enulose) 20 gm PO DAILY PRN PRN Reason: Constipation Last Admin: 06/03/18 20:21 Dose: 20 gm Losartan Potassium (Cozaar) 100 mg PO DAILY [facility] Last Admin: 06/06/18 09:06 Dose: 100 mg Metoclopramide HCl (Reglan) 5 mg IVP Q6H [facility] Stop: 06/08/18 23:59 Last Admin: 06/06/18 21:56 Dose: 5 mg Metoprolol Tartrate (Lopressor) 50 mg PO DAILY [facility] Last Admin: 06/06/18 09:05 Dose: 50 mg Pantoprazole Sodium (Protonix Ec Tab) 40 mg PO DAILY [facility] Last Admin: 06/06/18 09:05 Dose: 40 mg Rosuvastatin Calcium (Crestor) 5 mg PO HS [facility] Last Admin: 06/06/18 21:56 Dose: 5 mg - Labs Labs: 06/06/18 07:44 06/06/18 07:44 PT 12.8 SECONDS (9.7-12.2) H 06/05/18 11:31 INR 1.2 06/05/18 11:31 APTT 28.0 SECONDS (21-34) 06/05/18 11:31
[2018-06-07] MEDS ORDERED: Bisacodyl 5mg EC Tab PO ONE (06:00)
--- NOTE | 2018-06-07 06:20 | CP.PCM.PN ---
Subjective - Date & Time of Evaluation Date of Evaluation: 06/07/18 Time of Evaluation: 01:00 - Subjective Subjective: chart review post colonoscopy -BP went high , meds adjusted Vitals today--better and controlled no unususal event bowel prep for colonoscopy today Labs- still anemic Sodium slow improvement but better daughter informed patient seen- had colonoscopy with colon mass discussion with family , patient had episode of constipation- but with laxative- was able to have bowel movement NO VOMITING NO ABDOMINAL PAIN patient discussion to follow Objective - Vital Signs/Intake and Output Vital Signs (last 24 hours): Temp Pulse Resp BP Pulse Ox 98.1 F 63 20 112/64 98 06/06/18 23:35 06/07/18 04:16 06/06/18 23:35 06/06/18 23:35 06/06/18 23:35 Intake and Output: 06/06/18 06/07/18 18:59 06:59 Intake Total 440 Balance 440 - Medications Medications: Current Medications Acetaminophen (Tylenol 325mg Tab) 650 mg PO Q6 PRN PRN Reason: Pain, moderate (4-7) Allopurinol (Zyloprim) 100 mg PO DAILY [facility] Last Admin: 06/06/18 09:05 Dose: 100 mg Amlodipine Besylate (Norvasc) 5 mg PO DAILY [facility] Last Admin: 06/06/18 14:40 Dose: 5 mg Hydralazine HCl (Apresoline) 10 mg PO QID [facility] Last Admin: 06/06/18 21:56 Dose: 10 mg Lactulose (Enulose) 20 gm PO DAILY PRN PRN Reason: Constipation Last Admin: 06/03/18 20:21 Dose: 20 gm Losartan Potassium (Cozaar) 100 mg PO DAILY [facility] Last Admin: 06/06/18 09:06 Dose: 100 mg Metoclopramide HCl (Reglan) 5 mg IVP Q6H [facility] Stop: 06/08/18 23:59 Last Admin: 06/07/18 04:19 Dose: 5 mg Metoprolol Tartrate (Lopressor) 50 mg PO DAILY [facility] Last Admin: 06/06/18 09:05 Dose: 50 mg Pantoprazole Sodium (Protonix Ec Tab) 40 mg PO DAILY [facility] Last Admin: 06/06/18 09:05 Dose: 40 mg Rosuvastatin Calcium (Crestor) 5 mg PO HS [facility] Last Admin: 06/06/18 21:56 Dose: 5 mg - Labs Labs: 06/06/18 07:44 06/06/18 07:44 PT 12.8 SECONDS (9.7-12.2) H 06/05/18 11:31 INR 1.2 06/05/18 11:31 APTT 28.0 SECONDS (21-34) 06/05/18 11:31 - Constitutional Appears: Non-toxic, No Acute Distress - Head Exam Head Exam: ATRAUMATIC, NORMOCEPHALIC - Eye Exam Eye Exam: Normal appearance. absent: Nystagmus - ENT Exam ENT Exam: Mucous Membranes Moist - Neck Exam Neck Exam: Full ROM. absent: Tenderness - Respiratory Exam Respiratory Exam: Clear to Ausculation Bilateral, NORMAL BREATHING PATTERN - Cardiovascular Exam Cardiovascular Exam: REGULAR RHYTHM, Murmur - GI/Abdominal Exam GI & Abdominal Exam: Soft, Normal Bowel Sounds. absent: Tenderness - Extremities Exam Extremities Exam: Full ROM, Normal Inspection. absent: Pedal Edema - Back Exam Back Exam: Full ROM. absent: tenderness - Neurological Exam Neurological Exam: Alert, Awake, Normal Gait, Oriented x3 - Psychiatric Exam Psychiatric exam: Normal Affect, Normal Mood - Skin Skin Exam: Intact, Normal Color Assessment and Plan - Assessment and Plan (Free Text) Assessment: 72 Y.O. PATIENT WITH ACUTE ANEMIA,, HYPONATREMIA, FOUND TO HAVE COLON LESION- WITH FAILURE TO PASS SCOPE, CURRENTLY WITH SOME CONSTIPATION FURTHER DISCUSSION WITH FAMILY, PATIENT'S DECISON, SURGERY CONSULT, HEME OCOLOGIST ON THE CASE . WILL FOLLOW UP ABDOMEN AND PELVIS SCAN HYPERTENSION- BETTER CONTINUE CURRENT MEDICATION
[2018-06-07 10:41] LABS: URINE BILIRUBIN NEGATIVE (NEGATIVE); URINE BLOOD 1+ (NEGATIVE); URINE CLARITY Clear (Clear); URINE COLOR Yellow (YELLOW); URINE GLUCOSE (UA) NORMAL (Normal); URINE LEUKOCYTE ESTERASE NEG Leu/uL (Negative); URINE PROTEIN NEGATIVE (NEGATIVE); URINE UROBILINOGEN NORMAL mg/dL (0.2-1.0)
[2018-06-07] MEDS ORDERED: Propofol 10 mg/ml Inj (20 ML) ONE (11:31)
[2018-06-07] MEDS: Pantoprazole 40 mg EC Tab PO SCH (13:19)
[2018-06-07 15:52] LABS: BASO % 0.6 % (0.0-2.0); EOS # 0.1 K/uL (0.0-0.7); EOS % 1.6 % (0.0-4.0); HEMOGLOBIN 9.3 g/dL (12.0-18.0); LYMPH # 0.7 K/uL (1.0-4.3); LYMPH % 15.3 % (20.0-40.0); MEAN CELL VOLUME 108.5 fL (80.0-94.0); MEAN PLATELET VOLUME 8.5 fL (7.2-11.7); MONO # 0.5 K/uL (0.0-0.8); MONO % 9.7 % (0.0-10.0); NEUT # 3.5 K/uL (1.8-7.0); NEUT % 72.8 % (50.0-75.0); NRBC % 0.2 % (0.0-2.0); RBC 2.46 Mil/uL (4.40-5.90); RED CELL DISTRIBUTION WIDTH 15.6 % (11.5-14.5); WHITE BLOOD COUNT 4.9 K/uL (4.8-10.8)
[2018-06-07 16:44] LABS: BLOOD UREA NITROGEN 20 mg/dL (9-20); CALCIUM 8.2 mg/dl (8.6-10.4); GFR NON-AFRICAN AMERICAN > 60
--- NOTE | 2018-06-07 17:13 | CP.PCM.CON ---
History of Present Illness - History of Present Illness History of Present Illness: Surgery: Dr. Fierro Reason for consult: SBO HPI: Patient is a 72 y/o male who presented with fall and anemia and is s/p EGD and colonoscopy. Patient poor historian. Most History obtained from medical record. Patient denies abdominal pain, reports multiple bowel movements yesterday for colonoscopy prep. Denies n/v/f/c. Patient underwent colonoscopy which showed spasm of the sigmoid colon and the colonoscopy was aborted due to inability to pass scope. Surgery was consulted for evaluation. PMH: HTN, brain aneurysm, stroke, HLD, Shingles, Osteoporosis, anemia PSH: aneurysm clip, colonoscopy/EGD Social: denies toxic habits Review of Systems - Review of Systems All systems: reviewed and no additional remarkable complaints except Review of Systems: unless stated in HPI Past Patient History - Past Medical History & Family History Past Medical History?: Yes - Past Social History Smoking Status: Never Smoked - CARDIAC Hx Cardiac Disorders: Yes Hx Hypertension: Yes - PULMONARY Hx Respiratory Disorders: No - NEUROLOGICAL Hx Neurological Disorder: Yes Other/Comment: anyeursm rt head - HEENT Hx HEENT Problems: Yes Other/Comment: wear glasses for poor vision - RENAL Hx Chronic Kidney Disease: No - ENDOCRINE/METABOLIC Hx Endocrine Disorders: No - HEMATOLOGICAL/ONCOLOGICAL Hx Blood Disorders: No - INTEGUMENTARY Hx Dermatological Problems: No - MUSCULOSKELETAL/RHEUMATOLOGICAL Hx Falls: Yes - GASTROINTESTINAL Hx Gastrointestinal Disorders: No - PSYCHIATRIC Hx Substance Use: No - SURGICAL HISTORY Hx Surgeries: Yes Other/Comment: Brain surgery ,aneurysm, 1997 - ANESTHESIA Hx Anesthesia: Yes Hx Anesthesia Reactions: No Meds Allergies/Adverse Reactions: Allergies Allergy/AdvReac Type Severity Reaction Status Date / Time No Known Allergies Allergy Verified 06/02/18 09:24 - Medications Medications: Current Medications Acetaminophen (Tylenol 325mg Tab) 650 mg PO Q6 PRN PRN Reason: Pain, moderate (4-7) Allopurinol (Zyloprim) 100 mg PO DAILY [facility] Last Admin: 06/07/18 13:19 Dose: 100 mg Amlodipine Besylate (Norvasc) 5 mg PO DAILY [facility] Last Admin: 06/07/18 13:20 Dose: 5 mg Hydralazine HCl (Apresoline) 10 mg PO QID [facility] Last Admin: 06/07/18 13:19 Dose: 10 mg Lactulose (Enulose) 20 gm PO DAILY PRN PRN Reason: Constipation Last Admin: 06/03/18 20:21 Dose: 20 gm Losartan Potassium (Cozaar) 100 mg PO DAILY [facility] Last Admin: 06/07/18 13:19 Dose: 100 mg Metoclopramide HCl (Reglan) 5 mg IVP Q6H [facility] Stop: 06/08/18 23:59 Last Admin: 06/07/18 16:24 Dose: 5 mg Metoprolol Tartrate (Lopressor) 50 mg PO DAILY [facility] Last Admin: 06/07/18 13:18 Dose: 50 mg Pantoprazole Sodium (Protonix Ec Tab) 40 mg PO DAILY [facility] Last Admin: 06/07/18 13:19 Dose: 40 mg Rosuvastatin Calcium (Crestor) 5 mg PO HS [facility] Last Admin: 06/06/18 21:56 Dose: 5 mg Physical Exam - Constitutional Appears: Non-toxic, No Acute Distress - Head Exam Head Exam: ATRAUMATIC, NORMOCEPHALIC - Eye Exam Eye Exam: EOMI, Normal appearance - ENT Exam ENT Exam: Mucous Membranes Moist - Respiratory Exam Respiratory Exam: NORMAL BREATHING PATTERN. absent: Respiratory Distress - Cardiovascular Exam Cardiovascular Exam: REGULAR RHYTHM. absent: Tachycardia - GI/Abdominal Exam GI & Abdominal Exam: Soft. absent: Distended, Guarding, Hernia, Rebound, Tenderness - Rectal Exam Rectal Exam: Deferred - Extremities Exam Extremities exam: Positive for: normal inspection. Negative for: calf tenderness - Neurological Exam Neurological exam: Alert - Psychiatric Exam Psychiatric exam: Flat Affect - Skin Skin Exam: Normal Color, Warm Results - Vital Signs Recent Vital Signs: Last Vital Signs Temp 98.9 F 06/07/18 15:58 Pulse 67 06/07/18 15:58 Resp 18 06/07/18 15:58 BP 116/62 06/07/18 15:58 Pulse Ox 100 06/07/18 15:58 - Labs Result Diagrams: 06/07/18 15:40 06/07/18 15:40 Labs: Laboratory Results - last 24 hr 06/06/18 06/06/18 06/06/18 07:44 07:44 09:20 WBC RBC Hgb Hct MCV MCH MCHC RDW Plt Count MPV Neut % (Auto) Lymph % (Auto) Schley % (Auto) Eos % (Auto) Baso % (Auto) Neut # (Auto) Lymph # (Auto) Schley # (Auto) Eos # (Auto) Baso # (Auto) Sodium Potassium Chloride Carbon Dioxide Anion Gap BUN Creatinine Est GFR ( Amer) Est GFR (Non-Af Amer) Random Glucose Calcium Magnesium Total Protein (PEP) 5.4 L Cortisol AM Sample 10.9 Urine Color Urine Clarity Urine pH Ur Specific Hartley Urine Protein Urine Glucose (UA) Urine Ketones Urine Blood Urine Nitrate Urine Bilirubin Urine Urobilinogen Ur Leukocyte Esterase Urine WBC (Auto) Urine RBC (Auto) Ur Random Sodium Serum Immunofixation Not detected 06/07/18 06/07/18 06/07/18 10:11 10:11 15:40 WBC 4.9 RBC 2.46 L Hgb 9.3 L Hct 26.7 L MCV 108.5 H MCH 38.0 H MCHC 35.0 RDW 15.6 H Plt Count 91 L D MPV 8.5 Neut % (Auto) 72.8 Lymph % (Auto) 15.3 L Schley % (Auto) 9.7 Eos % (Auto) 1.6 Baso % (Auto) 0.6 Neut # (Auto) 3.5 Lymph # (Auto) 0.7 L Schley # (Auto) 0.5 Eos # (Auto) 0.1 Baso # (Auto) 0.0 Sodium Potassium Chloride Carbon Dioxide Anion Gap BUN Creatinine Est GFR ( Amer) Est GFR (Non-Af Amer) Random Glucose Calcium Magnesium Total Protein (PEP) Cortisol AM Sample Urine Color Yellow Urine Clarity Clear Urine pH 5.0 Ur Specific Hartley 1.014 Urine Protein Negative Urine Glucose (UA) Normal Urine Ketones Negative Urine Blood 1+ H Urine Nitrate Negative Urine Bilirubin Negative Urine Urobilinogen Normal Ur Leukocyte Esterase Neg Urine WBC (Auto) < 1 Urine RBC (Auto) 10 H Ur Random Sodium 60 Serum Immunofixation 06/07/18 15:40 WBC RBC Hgb Hct MCV MCH MCHC RDW Plt Count MPV Neut % (Auto) Lymph % (Auto) Schley % (Auto) Eos % (Auto) Baso % (Auto) Neut # (Auto) Lymph # (Auto) Schley # (Auto) Eos # (Auto) Baso # (Auto) Sodium 129 L Potassium 4.5 Chloride 93 L Carbon Dioxide 25 Anion Gap 16 BUN 20 Creatinine 1.0 Est GFR ( Amer) > 60 Est GFR (Non-Af Amer) > 60 Random Glucose 122 H D Calcium 8.2 L Magnesium 2.7 H Total Protein (PEP) Cortisol AM Sample Urine Color Urine Clarity Urine pH Ur Specific Hartley Urine Protein Urine Glucose (UA) Urine Ketones Urine Blood Urine Nitrate Urine Bilirubin Urine Urobilinogen Ur Leukocyte Esterase Urine WBC (Auto) Urine RBC (Auto) Ur Random Sodium Serum Immunofixation Assessment & Plan - Assessment and Plan (Free Text) Assessment: 72 y/o male w/ colon spasm and anemia Plan: -clinically not obstructed -maintain normal electrolyte level -rec CT w/ po and IV contrast since no imaging performed -will f/u imaging results -no surgical intervention at this time -d/w Dr. Vadim Etienne PGY4
[2018-06-07] MEDS ORDERED: Iohexol 240 (50 ml) PO ONE (21:30)
[2018-06-07] MEDS ORDERED: Iodixanol 320 mg/ml 150 ml Bottle IV ONE (23:41)
[2018-06-08 00:04] VITALS: RESP 20
--- NOTE | 2018-06-08 06:58 | CP.PCM.PN ---
Subjective - Date & Time of Evaluation Date of Evaluation: 06/07/18 Time of Evaluation: 19:35 - Subjective Subjective: Patient seen and evaluated. More comfortable Pedal edema resolved Constipation PMHx: As stated above PSHx: Frontal Aneurysmal Clipping Allergies: NKDA SocialHx: Denies tobacco, EtoH, and Illicit Drug Use FamHx: Non-Cont. Meds: As per APR. PMD: Dr. Yang. Review of Systems - Review of Systems All systems: reviewed and no additional remarkable complaints except (As per HPI) Physical Exam - Constitutional Appears: Non-toxic, No Acute Distress, Cachectic, Chronically Ill - Head Exam Head Exam: ATRAUMATIC, NORMAL INSPECTION, NORMOCEPHALIC - Eye Exam Eye Exam: EOMI, Normal appearance - ENT Exam ENT Exam: Mucous Membranes Moist - Cardiovascular Exam Cardiovascular Exam: RRR, +S1, +S2 - GI/Abdominal Exam GI & Abdominal Exam: Normal Bowel Sounds, Soft. absent: Tenderness - Extremities Exam Extremities exam: Positive for: normal capillary refill. Negative for: pedal edema - Neurological Exam Neurological exam: Alert - Psychiatric Exam Psychiatric exam: Normal Affect, Normal Mood - Skin Skin Exam: Dry, Intact, Normal Color, Warm Assessment & Plan - Assessment and Plan (Free Text) Assessment: 72 year old male with PMHx of HTN, Hemmoraghic Stroke, Osteoporosis, and anemia who was admitted to [facility] for evaluation and treatment of mechanical fall. Cardiology Consulted for evaluation and treatment of persistent lower Ext. Edema now resolved with Lasix Plan: Lower Ext. Edema ECHO (06/03/18): Normal EF, No major valve issues Continue Lasix 20mg PO Daily Compression Stocking Macrocytic Anemia Anemia workup, F/U Surgery eval for SBO Objective - Vital Signs/Intake and Output Vital Signs (last 24 hours): Temp Pulse Resp BP Pulse Ox 98.5 F 63 20 134/69 100 06/07/18 23:20 06/08/18 05:00 06/07/18 23:20 06/07/18 23:20 06/07/18 23:20 Intake and Output: 06/07/18 06/08/18 18:59 06:59 Intake Total 125 550 Balance 125 550 - Medications Medications: Current Medications Acetaminophen (Tylenol 325mg Tab) 650 mg PO Q6 PRN PRN Reason: Pain, moderate (4-7) Allopurinol (Zyloprim) 100 mg PO DAILY [facility] Last Admin: 06/07/18 13:19 Dose: 100 mg Amlodipine Besylate (Norvasc) 5 mg PO DAILY [facility] Last Admin: 06/07/18 13:20 Dose: 5 mg Hydralazine HCl (Apresoline) 10 mg PO QID [facility] Last Admin: 06/07/18 21:51 Dose: 10 mg Lactulose (Enulose) 20 gm PO DAILY PRN PRN Reason: Constipation Last Admin: 06/03/18 20:21 Dose: 20 gm Losartan Potassium (Cozaar) 100 mg PO DAILY [facility] Last Admin: 06/07/18 13:19 Dose: 100 mg Metoclopramide HCl (Reglan) 5 mg IVP Q6H [facility] Stop: 06/08/18 23:59 Last Admin: 06/08/18 05:15 Dose: 5 mg Metoprolol Tartrate (Lopressor) 50 mg PO DAILY [facility] Last Admin: 06/07/18 13:18 Dose: 50 mg Pantoprazole Sodium (Protonix Ec Tab) 40 mg PO DAILY [facility] Last Admin: 06/07/18 13:19 Dose: 40 mg Rosuvastatin Calcium (Crestor) 5 mg PO HS [facility] Last Admin: 06/07/18 21:51 Dose: 5 mg - Labs Labs: 06/07/18 15:40 06/07/18 15:40 PT 12.8 SECONDS (9.7-12.2) H 06/05/18 11:31 INR 1.2 06/05/18 11:31 APTT 28.0 SECONDS (21-34) 06/05/18 11:31
[2018-06-08 07:01] LABS: ALBUMIN (PEP) 3.2 g/dL (3.8-4.8); ALPHA-1-GLOBULIN (PEP) 0.3 g/dL (0.2-0.3)
--- NOTE | 2018-06-08 10:19 | CP.PCM.PN ---
Subjective - Date & Time of Evaluation Date of Evaluation: 06/08/18 Time of Evaluation: 10:00 - Subjective Subjective: GI Fellow PGY 5 Progress Note Pt seen and evaluated at bedside, pt denies any abdominal pain or constipation at this time. ROS: A 12pt ROS was negative except as above Objective - Vital Signs/Intake and Output Vital Signs (last 24 hours): Temp Pulse Resp BP Pulse Ox 98.4 F 70 20 156/69 H 98 06/08/18 08:58 06/08/18 08:58 06/08/18 08:58 06/08/18 08:58 06/08/18 08:58 Intake and Output: 06/08/18 06/08/18 06:59 18:59 Intake Total 550 Balance 550 - Medications Medications: Current Medications Acetaminophen (Tylenol 325mg Tab) 650 mg PO Q6 PRN PRN Reason: Pain, moderate (4-7) Allopurinol (Zyloprim) 100 mg PO DAILY [facility] Last Admin: 06/07/18 13:19 Dose: 100 mg Amlodipine Besylate (Norvasc) 5 mg PO DAILY [facility] Last Admin: 06/07/18 13:20 Dose: 5 mg Hydralazine HCl (Apresoline) 10 mg PO QID [facility] Last Admin: 06/07/18 21:51 Dose: 10 mg Lactulose (Enulose) 20 gm PO DAILY PRN PRN Reason: Constipation Last Admin: 06/03/18 20:21 Dose: 20 gm Losartan Potassium (Cozaar) 100 mg PO DAILY [facility] Last Admin: 06/07/18 13:19 Dose: 100 mg Metoclopramide HCl (Reglan) 5 mg IVP Q6H [facility] Stop: 06/08/18 23:59 Last Admin: 06/08/18 05:15 Dose: 5 mg Metoprolol Tartrate (Lopressor) 50 mg PO DAILY [facility] Last Admin: 06/07/18 13:18 Dose: 50 mg Pantoprazole Sodium (Protonix Ec Tab) 40 mg PO DAILY [facility] Last Admin: 06/07/18 13:19 Dose: 40 mg Rosuvastatin Calcium (Crestor) 5 mg PO HS [facility] Last Admin: 06/07/18 21:51 Dose: 5 mg - Labs Labs: 06/07/18 15:40 06/07/18 15:40 PT 12.8 SECONDS (9.7-12.2) H 06/05/18 11:31 INR 1.2 06/05/18 11:31 APTT 28.0 SECONDS (21-34) 06/05/18 11:31 - Constitutional Appears: Non-toxic, No Acute Distress, Older Than Stated Age, Cachectic - Head Exam Head Exam: ATRAUMATIC, NORMAL INSPECTION, NORMOCEPHALIC - Eye Exam Eye Exam: EOMI, Normal appearance, PERRL - ENT Exam ENT Exam: Mucous Membranes Moist - Neck Exam Neck Exam: Full ROM, Normal Inspection - Respiratory Exam Respiratory Exam: Clear to Ausculation Bilateral, NORMAL BREATHING PATTERN - Cardiovascular Exam Cardiovascular Exam: REGULAR RHYTHM, RRR, +S1, +S2 - GI/Abdominal Exam GI & Abdominal Exam: Soft, Normal Bowel Sounds. absent: Distended, Firm, Guarding, Tenderness, Organomegaly - Extremities Exam Extremities Exam: Full ROM, Normal Inspection - Back Exam Back Exam: NORMAL INSPECTION - Neurological Exam Neurological Exam: Alert, Awake, Oriented x3 - Psychiatric Exam Psychiatric exam: Normal Affect, Normal Mood - Skin Skin Exam: Dry, Intact, Normal Color, Warm Assessment and Plan - Assessment and Plan (Free Text) Assessment: 1. Anemia 2. Elevated CEA 3. Colon narrowing at splenic flexure during colonoscopy 4. Hx of constipation Plan: -Pt s/p EGD and colonoscopy for anemia -EGD with no acute etiology of anemia, no PUD or AVM -Colonoscopy with narrowing at splenic flexure, unable to advance scope -CEA elevated, concerning for colon cancer -CT imaging ordered by surgery awaiting results for review -Okay to advance diet if okay by surgery -Discussed with daughter at bedside
--- NOTE | 2018-06-08 10:43 | CP.PCM.PN ---
Subjective - Date & Time of Evaluation Date of Evaluation: 06/08/18 Time of Evaluation: 10:00 - Subjective Subjective: chart review yesterday had discussion with family patient - agreed to surgery if vitals =BP- noted to have slight elevation again despite adjustment in medication- hemoglobin 9.3 sodium stable patient seen no complaint aware of condition discusssion with daughter= waiting clarification of repeat colonscopy ? patient able to move flatus Objective - Vital Signs/Intake and Output Vital Signs (last 24 hours): Temp Pulse Resp BP Pulse Ox 98.4 F 70 20 156/69 H 98 06/08/18 08:58 06/08/18 08:58 06/08/18 08:58 06/08/18 08:58 06/08/18 08:58 Intake and Output: 06/08/18 06/08/18 06:59 18:59 Intake Total 550 Balance 550 - Medications Medications: Current Medications Acetaminophen (Tylenol 325mg Tab) 650 mg PO Q6 PRN PRN Reason: Pain, moderate (4-7) Allopurinol (Zyloprim) 100 mg PO DAILY [facility] Last Admin: 06/07/18 13:19 Dose: 100 mg Amlodipine Besylate (Norvasc) 5 mg PO DAILY [facility] Last Admin: 06/07/18 13:20 Dose: 5 mg Hydralazine HCl (Apresoline) 10 mg PO QID [facility] Last Admin: 06/07/18 21:51 Dose: 10 mg Lactulose (Enulose) 20 gm PO DAILY PRN PRN Reason: Constipation Last Admin: 06/03/18 20:21 Dose: 20 gm Losartan Potassium (Cozaar) 100 mg PO DAILY [facility] Last Admin: 06/07/18 13:19 Dose: 100 mg Metoclopramide HCl (Reglan) 5 mg IVP Q6H [facility] Stop: 06/08/18 23:59 Last Admin: 06/08/18 05:15 Dose: 5 mg Metoprolol Tartrate (Lopressor) 50 mg PO DAILY [facility] Last Admin: 06/07/18 13:18 Dose: 50 mg Pantoprazole Sodium (Protonix Ec Tab) 40 mg PO DAILY [facility] Last Admin: 06/07/18 13:19 Dose: 40 mg Rosuvastatin Calcium (Crestor) 5 mg PO HS [facility] Last Admin: 06/07/18 21:51 Dose: 5 mg - Labs Labs: 06/07/18 15:40 06/07/18 15:40 PT 12.8 SECONDS (9.7-12.2) H 06/05/18 11:31 INR 1.2 06/05/18 11:31 APTT 28.0 SECONDS (21-34) 06/05/18 11:31 - Constitutional Appears: Non-toxic, No Acute Distress - Head Exam Head Exam: ATRAUMATIC, NORMOCEPHALIC - Eye Exam Eye Exam: Normal appearance - ENT Exam ENT Exam: Mucous Membranes Moist - Respiratory Exam Respiratory Exam: Clear to Ausculation Bilateral, NORMAL BREATHING PATTERN - Cardiovascular Exam Cardiovascular Exam: REGULAR RHYTHM, Murmur - GI/Abdominal Exam GI & Abdominal Exam: Soft, Normal Bowel Sounds - Extremities Exam Extremities Exam: Full ROM. absent: Joint Swelling, Pedal Edema, Tenderness - Neurological Exam Neurological Exam: Alert, Awake, Normal Gait, Oriented x3 - Psychiatric Exam Psychiatric exam: Normal Affect, Normal Mood Assessment and Plan - Assessment and Plan (Free Text) Assessment: Patient with acute problems Hypotonic hyponatremia -Siadh Dehydration improved and stabilized acute anemia-colonoscopy -revealed-non passage of scope at flexure area -differential- colon ca- discussion with patient and family no indication for surgery at this time plan for home awaiting biopsies will follow up patient in the clinic discusion with TERA Barnett =appreciate her help hypertension- episode of instability- adjusted medication- will follow up asymptomatic and stable
[2018-06-08] MEDS: Pantoprazole 40 mg EC Tab PO SCH (11:28)
--- NOTE | 2018-06-08 11:40 | CP.PCM.PN ---
<Maricarmen Lockett - Last Filed: 06/08/18 16:51> Subjective - Date & Time of Evaluation Date of Evaluation: 06/08/18 Time of Evaluation: 11:37 - Subjective Subjective: Cardiology Progress Note. Patient seen and examined at bedside. No overnight events reported. Denies any chest pain, SOB, palpitations, or new leg edema. Objective - Vital Signs/Intake and Output Vital Signs (last 24 hours): Temp Pulse Resp BP Pulse Ox 98.4 F 70 20 156/69 H 98 06/08/18 08:58 06/08/18 08:58 06/08/18 08:58 06/08/18 08:58 06/08/18 08:58 Intake and Output: 06/08/18 06/08/18 06:59 18:59 Intake Total 550 Balance 550 - Medications Medications: Current Medications Acetaminophen (Tylenol 325mg Tab) 650 mg PO Q6 PRN PRN Reason: Pain, moderate (4-7) Allopurinol (Zyloprim) 100 mg PO DAILY [facility] Last Admin: 06/08/18 11:28 Dose: Not Given Amlodipine Besylate (Norvasc) 5 mg PO DAILY [facility] Last Admin: 06/08/18 11:28 Dose: Not Given Hydralazine HCl (Apresoline) 10 mg PO QID [facility] Last Admin: 06/08/18 09:30 Dose: Not Given Hydralazine HCl (Apresoline) 10 mg IVP Q6H [facility] Lactulose (Enulose) 20 gm PO DAILY PRN PRN Reason: Constipation Last Admin: 06/03/18 20:21 Dose: 20 gm Losartan Potassium (Cozaar) 100 mg PO DAILY [facility] Last Admin: 06/08/18 11:27 Dose: Not Given Metoclopramide HCl (Reglan) 5 mg IVP Q6H [facility] Stop: 06/08/18 23:59 Last Admin: 06/08/18 05:15 Dose: 5 mg Metoprolol Tartrate (Lopressor) 50 mg PO DAILY [facility] Last Admin: 06/08/18 11:28 Dose: Not Given Pantoprazole Sodium (Protonix Ec Tab) 40 mg PO DAILY [facility] Last Admin: 06/08/18 11:28 Dose: Not Given Rosuvastatin Calcium (Crestor) 5 mg PO [facility] Last Admin: 06/07/18 21:51 Dose: 5 mg - Labs Labs: 06/07/18 15:40 06/07/18 15:40 PT 12.8 SECONDS (9.7-12.2) H 06/05/18 11:31 INR 1.2 06/05/18 11:31 APTT 28.0 SECONDS (21-34) 06/05/18 11:31 - Additional Findings Additional findings: - Constitutional Appears: Non-toxic, No Acute Distress, Cachectic, Chronically Ill - Head Exam Head Exam: ATRAUMATIC, NORMAL INSPECTION, NORMOCEPHALIC - Eye Exam Eye Exam: EOMI, Normal appearance - ENT Exam ENT Exam: Mucous Membranes Moist - Cardiovascular Exam Cardiovascular Exam: RRR, +S1, +S2, +(2/5) Murmur. - GI/Abdominal Exam GI & Abdominal Exam: Normal Bowel Sounds, Soft. absent: Tenderness - Extremities Exam Extremities exam: Positive for: normal capillary refill. Negative for: pedal edema - Neurological Exam Neurological exam: Alert - Psychiatric Exam Psychiatric exam: Normal Affect, Normal Mood - Skin Skin Exam: Dry, Intact, Jaundice, Warm Assessment and Plan - Assessment and Plan (Free Text) Assessment: 72 year old male with PMHx of HTN, Hemmoraghic Stroke, Osteoporosis, and anemia who was admitted to [facility] for evaluation and treatment of mechanical fall. Cardiology Consulted for evaluation and treatment of persistent lower Ext. Edema. Plan: Lower Ext. Edema ECHO (06/03/18): Normal LV Function, Grade I diastolic Dysfunction. Trace-Mild, AR, TR, and CA, no pericardial effusion. Mgmt: Lasix PRN Compression Stocking PRN Patient discussed with Attending (Dr. Gray) Maricarmen Lockett, PGY-2 <Erik Gray - Last Filed: 06/08/18 23:29> Objective - Vital Signs/Intake and Output Vital Signs (last 24 hours): Temp Pulse Resp BP Pulse Ox 98.1 F 76 20 114/68 100 06/08/18 16:57 06/08/18 17:33 06/08/18 16:57 06/08/18 17:33 06/08/18 16:57 - Labs Labs: 06/08/18 17:18 06/08/18 17:18 PT 12.8 SECONDS (9.7-12.2) H 06/05/18 11:31 INR 1.2 06/05/18 11:31 APTT 28.0 SECONDS (21-34) 06/05/18 11:31 Assessment and Plan - Assessment and Plan (Free Text) Plan: Patient seen and evaluated pesronally by me. Plan of care d/w the durable medical equipment repairer and as documented
--- NOTE | 2018-06-08 13:25 | CP.PCM.PN ---
Subjective - Date & Time of Evaluation Date of Evaluation: 06/08/18 Time of Evaluation: 13:24 - Subjective Subjective: doing well. tolerating feedings and having bmsm ok for dc Objective - Vital Signs/Intake and Output Vital Signs (last 24 hours): Temp Pulse Resp BP Pulse Ox 98.4 F 70 20 128/62 98 06/08/18 08:58 06/08/18 08:58 06/08/18 08:58 06/08/18 13:02 06/08/18 08:58 Intake and Output: 06/08/18 06/08/18 06:59 18:59 Intake Total 550 Balance 550 - Medications Medications: Current Medications Acetaminophen (Tylenol 325mg Tab) 650 mg PO Q6 PRN PRN Reason: Pain, moderate (4-7) Allopurinol (Zyloprim) 100 mg PO DAILY [facility] Last Admin: 06/08/18 11:28 Dose: Not Given Amlodipine Besylate (Norvasc) 5 mg PO DAILY [facility] Last Admin: 06/08/18 11:28 Dose: Not Given Hydralazine HCl (Apresoline) 10 mg PO QID [facility] Last Admin: 06/08/18 13:17 Dose: Not Given Hydralazine HCl (Apresoline) 10 mg IVP Q6H [facility] Last Admin: 06/08/18 11:46 Dose: 10 mg Lactulose (Enulose) 20 gm PO DAILY PRN PRN Reason: Constipation Last Admin: 06/03/18 20:21 Dose: 20 gm Losartan Potassium (Cozaar) 100 mg PO DAILY [facility] Last Admin: 06/08/18 12:51 Dose: 100 mg Metoclopramide HCl (Reglan) 5 mg IVP Q6H [facility] Stop: 06/08/18 23:59 Last Admin: 06/08/18 11:47 Dose: 5 mg Metoprolol Tartrate (Lopressor) 50 mg PO DAILY [facility] Last Admin: 06/08/18 12:52 Dose: 50 mg Pantoprazole Sodium (Protonix Ec Tab) 40 mg PO DAILY [facility] Last Admin: 06/08/18 11:28 Dose: Not Given Rosuvastatin Calcium (Crestor) 5 mg PO HS [facility] Last Admin: 06/07/18 21:51 Dose: 5 mg - Labs Labs: 06/07/18 15:40 06/07/18 15:40 PT 12.8 SECONDS (9.7-12.2) H 06/05/18 11:31 INR 1.2 06/05/18 11:31 APTT 28.0 SECONDS (21-34) 06/05/18 11:31
--- NOTE | 2018-06-08 13:57 | CT ---
Date of service: 06/08/2018 PROCEDURE: CT Abdomen and Pelvis with contrast HISTORY: colon spasm, r/o obstruction COMPARISON: Complete abdomen ultrasound 06/06/2018. TECHNIQUE: Following oral and intravenous contrast administration, a CT examination of the abdomen and pelvis was performed from the domes of the diaphragms to the symphysis pubis with reformatted datasets provided not only axial but also sagittal and coronal series. Contrast dose: Visipaque 320, 100 cc Radiation dose: Total exam DLP = 246.43 mGy-cm. This CT exam was performed using one or more of the following dose reduction techniques: Automated exposure control, adjustment of the mA and/or kV according to patient size, and/or use of iterative reconstruction technique. FINDINGS: LOWER THORAX: Cardiomegaly and minimal left pleural effusion evident with no right pleural effusion identified. Extensive coronary artery calcifications are noted. No definite pulmonary vascular congestion evident. Nodular fibrosis suggested at the lingula base versus atelectasis. LIVER: There several tiny lucency scattered primarily at the dome and right lobe liver with many too small to characterize. The largest is identified at the right lobe in image 25 measuring 1.4 cm with artifacts traversing at limiting accurate Hounsfield unit measurement. It appears to measure 23 Hounsfield units. 1.1 cm lucency is immediately anterior to it measuring 17 Hounsfield units with 1 cm lucency at the dome medially, measuring 4 Hounsfield units. Sonographically, all 3 appear to correspond to simple cysts on 06/06/2018 sonogram. No definite intrahepatic biliary dilatation appreciable. GALLBLADDER AND BILE DUCTS: Gallbladder completely collapsed. PANCREAS: Unremarkable. No gross lesion or ductal dilatation. SPLEEN: Unremarkable. ADRENALS: Unremarkable. No mass. KIDNEYS AND URETERS: A 2.4 cm simple cyst is identified at the midpole right kidney medially with the sub cm lucency at the midpole laterally, too small to characterize. No obstructive uropathy bilaterally. No definite perinephric reaction or fluid collection. No radiodense urolithiasis appreciable. VASCULATURE: Nonaneurysmal abdominal aortic calcific atherosclerotic changes are identified. BOWEL: The stomach is poorly evaluated due to complete collapse. The bowel does not appear obstructed. Gas and fluid are identified partially filling the distal large bowel with fluid mildly distending the left hemicolon and gas distending the ascending and transverse colonic segments. No overt pattern to suggest bowel perforation at this time. No definite bowel obstruction appreciable. The opacified small bowel is unremarkable appearing. There is a left inguinal hernia containing what appears to be a small bowel segment. No definite incarceration pattern. Oral contrast opacified small bowel and a minimal portion of the cecum. APPENDIX: Not identified. No definite CT evidence of appendicitis. PERITONEUM: No extravasation of oral contrast material. No free fluid. No free air. LYMPH NODES: Unremarkable. No enlarged lymph nodes. BLADDER: Unremarkable. REPRODUCTIVE: Unremarkable. BONES: No acute fracture. OTHER FINDINGS: None. IMPRESSION: 1. No definite pattern of bowel obstruction appreciable at this time. Oral contrast opacified small bowel and minimal portion of the cecum with gas and fluid mildly distending the large bowel somewhat. Note is made of a non incarcerated segment of small bowel at the left inguinal distribution. No free air or extravasated oral contrast material appreciated within the peritoneal space throughout. 2. Multiple hepatic lucencies are identified including 3 which appear to correspond to cysts identified in prior abdomen ultrasound 2919. 3. 2.4 cm midpole right renal cyst. 4. Other lesser findings as discussed above including at the visualized lung bases. Preliminary report provided by Armando, 06/08/2018 1:35 a.m..
--- NOTE | 2018-06-08 15:17 | CP.PCM.DIS ---
Provider - Provider Date of Admission: 06/07/18 16:04 Attending physician: Abril Yang MD Consults: 06/02/18 13:06 Physician Consult Routine Comment: Consulting Provider: Erik Gray Consulting Physician: Erik Gray Reason for Consult: persistent edema despite meds 06/04/18 14:43 Physician Consult Routine Comment: Consulting Provider: Javed Malin Consulting Physician: Javed Malin Reason for Consult: anemia 06/04/18 14:44 Physician Consult Routine Comment: Consulting Provider: Lauren John Consulting Physician: Lauren John Reason for Consult: anemia 06/07/18 16:02 Physician Consult Routine Comment: Consulting Provider: Bradly Fierro Consulting Physician: Bradly Fierro Reason for Consult: sbo / inability to move BM Time Spent in preparation of Discharge (in minutes): 30 Hospital Course - Lab Results Lab Results: Most Recent Lab Values WBC 4.9 K/uL (4.8-10.8) 06/07/18 15:40 RBC 2.46 Mil/uL (4.40-5.90) L 06/07/18 15:40 Hgb 9.3 g/dL (12.0-18.0) L 06/07/18 15:40 Hct 26.7 % (35.0-51.0) L 06/07/18 15:40 MCV 108.5 fL (80.0-94.0) H 06/07/18 15:40 MCH 38.0 pg (27.0-31.0) H 06/07/18 15:40 MCHC 35.0 g/dL (33.0-37.0) 06/07/18 15:40 RDW 15.6 % (11.5-14.5) H 06/07/18 15:40 Plt Count 91 K/uL (130-400) L D 06/07/18 15:40 MPV 8.5 fL (7.2-11.7) 06/07/18 15:40 Neut % (Auto) 72.8 % (50.0-75.0) 06/07/18 15:40 Lymph % (Auto) 15.3 % (20.0-40.0) L 06/07/18 15:40 [place] % (Auto) 9.7 % (0.0-10.0) 06/07/18 15:40 Eos % (Auto) 1.6 % (0.0-4.0) 06/07/18 15:40 Baso % (Auto) 0.6 % (0.0-2.0) 06/07/18 15:40 Neut # (Auto) 3.5 K/uL (1.8-7.0) 06/07/18 15:40 Lymph # (Auto) 0.7 K/uL (1.0-4.3) L 06/07/18 15:40 [place] # (Auto) 0.5 K/uL (0.0-0.8) 06/07/18 15:40 Eos # (Auto) 0.1 K/uL (0.0-0.7) 06/07/18 15:40 Baso # (Auto) 0.0 K/uL (0.0-0.2) 06/07/18 15:40 Differential Comment 06/07/18 15:40 ESR 20 mm/hr (0-15) H 06/05/18 08:42 Retic Count 1.5 % (0.5-1.5) 06/05/18 08:42 Haptoglobin 34.6 mg/dL (30.0-200.0) 06/03/18 16:42 PT 12.8 SECONDS (9.7-12.2) H 06/05/18 11:31 INR 1.2 06/05/18 11:31 APTT 28.0 SECONDS (21-34) 06/05/18 11:31 Sodium 129 mmol/L (132-148) L 06/07/18 15:40 Potassium 4.5 mmol/L (3.6-5.2) 06/07/18 15:40 Chloride 93 mmol/L (98-107) L 06/07/18 15:40 Carbon Dioxide 25 mmol/L (22-30) 06/07/18 15:40 Anion Gap 16 (10-20) 06/07/18 15:40 BUN 20 mg/dL (9-20) 06/07/18 15:40 Creatinine 1.0 mg/dL (0.8-1.5) 06/07/18 15:40 Est GFR ( Amer) > 60 06/07/18 15:40 Est GFR (Non-Af Amer) > 60 06/07/18 15:40 POC Glucose (mg/dL) 170 mg/dL (65-110) H 06/05/18 10:57 Random Glucose 122 mg/dL (75-110) H D 06/07/18 15:40 Uric Acid 3.5 mg/dL (3.5-8.5) 06/06/18 07:44 Calcium 8.2 mg/dl (8.6-10.4) L 06/07/18 15:40 Phosphorus 3.3 mg/dL (2.5-4.5) 06/04/18 07:16 Magnesium 2.7 mg/dL (1.6-2.3) H 06/07/18 15:40 Iron 53 ug/dL (49-181) 06/05/18 08:40 TIBC 228 ug/dL (250-450) L 06/05/18 08:40 % Saturation 23 (20-55) 06/05/18 08:40 Ferritin 244.0 ng/mL 06/05/18 08:40 Total Bilirubin 0.5 mg/dL (0.2-1.3) 06/05/18 08:40 AST 32 U/L (17-59) 06/05/18 08:40 ALT 26 U/L (21-72) 06/05/18 08:40 Alkaline Phosphatase 44 U/L (38-126) 06/05/18 08:40 Lactate Dehydrogenase 897 U/L (313-618) H 06/05/18 08:40 Troponin I < 0.0120 ng/mL (0.00-0.120) 06/02/18 10:04 Total Protein 6.1 g/dL (6.3-8.3) L 06/05/18 08:40 Total Protein (PEP) 5.4 g/dL (6.1-8.1) L 06/06/18 07:44 Albumin 3.6 g/dL (3.5-5.0) 06/05/18 08:40 Albumin (PEP) 3.2 g/dL (3.8-4.8) L 06/06/18 07:44 Globulin 2.4 gm/dL (2.2-3.9) 06/05/18 08:40 Albumin/Globulin Ratio 1.5 (1.0-2.1) 06/05/18 08:40 Wufcl-2-Ayvgbupdb 0.3 g/dL (0.2-0.3) 06/06/18 07:44 Hofwe-8-Uewonkvrq 0.5 g/dL (0.5-0.9) 06/06/18 07:44 Thhg-9-Jmymnlry 0.3 g/dL (0.4-0.6) L 06/06/18 07:44 Llhj-4-Dttywsdh 0.2 g/dL (0.2-0.5) 06/06/18 07:44 Gamma Globulins 0.9 g/dL (0.8-1.7) 06/06/18 07:44 Abnorm Protein Band 1 TEST NOT PERFORMED 06/06/18 07:44 Abnorm Protein Band 2 TEST NOT PERFORMED 06/06/18 07:44 Abnorm Protein Band 3 TEST NOT PERFORMED 06/06/18 07:44 Carcinoembryonic Ag 4.3 ng/mL (0-3.0) H 06/05/18 08:40 Vitamin B12 776 pg/mL (239-931) 06/03/18 16:42 Folate > 20.0 ng/mL 06/03/18 16:42 TSH 3rd Generation 3.28 mIU/L (0.46-4.68) 06/06/18 07:44 Cortisol AM Sample 10.9 ug/dL (4.46-22.7) 06/06/18 09:20 Urine Color Yellow (YELLOW) 06/07/18 10:11 Urine Clarity Clear (Clear) 06/07/18 10:11 Urine pH 5.0 (5.0-8.0) 06/07/18 10:11 Ur Specific [place] 1.014 (1.003-1.030) 06/07/18 10:11 Urine Protein Negative mg/dL (NEGATIVE) 06/07/18 10:11 Urine Glucose (UA) Normal mg/dL (Normal) 06/07/18 10:11 Urine Ketones Negative mg/dL (NEGATIVE) 06/07/18 10:11 Urine Blood 1+ (NEGATIVE) H 06/07/18 10:11 Urine Nitrate Negative (NEGATIVE) 06/07/18 10:11 Urine Bilirubin Negative (NEGATIVE) 06/07/18 10:11 Urine Urobilinogen Normal mg/dL (0.2-1.0) 06/07/18 10:11 Ur Leukocyte Esterase Neg Bibi/uL (Negative) 06/07/18 10:11 Urine WBC (Auto) < 1 /hpf (0-5) 06/07/18 10:11 Urine RBC (Auto) 10 /hpf (0-3) H 06/07/18 10:11 Ur Random Sodium 60 mmol/L 06/07/18 10:11 IgG 1034 mg/dL (694-1618) 06/06/18 07:44 IgA 218 mg/dL (81-463) 06/06/18 07:44 IgM 7 mg/dL (48-271) L 06/06/18 07:44 WILD & SPEP Interp See note 06/06/18 07:44 Serum Immunofixation Not detected (Not Detected) 06/06/18 07:44 Urine Immunofixation Not detected (Not Detected) 06/06/18 07:09 - Hospital Course Hospital Course: patient admitted for hyponatremia and acute anemia , dehydration after a fall- stabilized with IVF, colonscopy revealed mass a differential for colon ca- but no indication for surgery. will wait for biopsy- will follow up patient in the clinic Discharge Exam - Head Exam Head Exam: ATRAUMATIC, NORMOCEPHALIC - Eye Exam Eye Exam: Normal appearance. absent: Nystagmus - ENT Exam ENT Exam: Mucous Membranes Moist - Neck Exam Neck exam: Full Rom - Respiratory Exam Respiratory Exam: Clear to PA & Lateral, NORMAL BREATHING PATTERN, UNREMARKABLE - Cardiovascular Exam Cardiovascular Exam: REGULAR RHYTHM, Systolic Murmur - GI/Abdominal Exam GI & Abdominal Exam: Normal Bowel Sounds, Soft. absent: Tenderness - Extremities Exam Extremities exam: full ROM - Back Exam Back exam: absent: rash noted - Neurological Exam Neurological exam: Alert, Normal Gait, Oriented x3 - Psychiatric Exam Psychiatric exam: Normal Affect, Normal Mood - Skin Skin Exam: Intact, Normal Color Discharge Plan - Discharge Medications Prescriptions: Walker [Rolling Walker] 1 dev XX PRN #1 dev - Follow Up Plan Condition: STABLE Disposition: HOME/ ROUTINE Additional Instructions: Please f/u with Dr. Mendoza office tommorrow Please resume all home medications
--- NOTE | 2018-06-08 16:23 | RAD ---
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 COMPARISON: None available. TECHNIQUE: 1 view obtained. FINDINGS: BOWEL: Retained oral contrast is identified at the ascending colon gas seen mildly distending various large and small bowel loops in the remainder of the abdomen and pelvis. Iodinated contrast material is identified excreted into the urinary bladder which is moderately distended. No gross free intrarenal gas collection appreciable. Prior large-bowel retained fecal material now not identified. BONES: Diffuse osteopenia suggests osteoporosis. OTHER FINDINGS: None. IMPRESSION: Nonobstructive bowel gas pattern appreciated. Retained oral contrast identified throughout the ascending colon.
[2018-06-08 16:58] VITALS: TEMP 98.1; O2SAT 100
[2018-06-08 17:24] LABS: BASO % 0.5 % (0.0-2.0); EOS # 0.1 K/uL (0.0-0.7); EOS % 1.8 % (0.0-4.0); HEMOGLOBIN 9.7 g/dL (12.0-18.0); LYMPH # 0.7 K/uL (1.0-4.3); MEAN CELL VOLUME 106.4 fL (80.0-94.0); MEAN CORPUSCULAR HEMOGLOBIN 36.8 pg (27.0-31.0); MEAN CORPUSCULAR HGB CONC 34.6 g/dL (33.0-37.0); MONO # 0.5 K/uL (0.0-0.8); MONO % 9.6 % (0.0-10.0); NEUT # 3.9 K/uL (1.8-7.0); NEUT % 75.1 % (50.0-75.0); NRBC % 0.1 % (0.0-2.0); RBC 2.64 Mil/uL (4.40-5.90); RED CELL DISTRIBUTION WIDTH 15.7 % (11.5-14.5); WHITE BLOOD COUNT 5.1 K/uL (4.8-10.8)
[2018-06-08 17:33] VITALS: BP 114/68; PULSE 76
[2018-06-08 18:11] LABS: ALB/GLOB RATIO 1.4 (1.0-2.1); ALBUMIN 3.8 g/dL (3.5-5.0); ALT/SGPT 27 U/L (21-72); AST/SGOT 33 U/L (17-59); BLOOD UREA NITROGEN 19 mg/dL (9-20); GFR NON-AFRICAN AMERICAN 59
== END 2018-06-08 18:28 | disposition home or self-care (01) | DRG 644 ==
LOC: C.ER 09:10 → C.3T 11:21 → C.6T 14:19 → OBSVTOIN 06-07 16:04
PROVIDERS: ADMIT Internal Medicine; ATTEND Internal Medicine
PROC: 0DBM8ZX Excision of Descending Colon, Via Natural or Artificial Opening Endoscopic, Diagnostic (ICD-10-PCS; 2018-06-07)
PROC: 0DBM8ZX Excision of Descending Colon, Via Natural or Artificial Opening Endoscopic, Diagnostic (ICD-10-PCS; principal; 2018-06-07 11:38)
DX: E22.2 Syndrome of inappropriate secretion of antidiuretic hormone (principal); K56.609 Unspecified intestinal obstruction, unspecified as to partial versus complete obstruction; D61.818 Other pancytopenia; E86.0 Dehydration; I12.9 Hypertensive chronic kidney disease with stage 1 through stage 4 chronic kidney disease, or unspecified chronic kidney disease; N18.9 Chronic kidney disease, unspecified; D50.9 Iron deficiency anemia, unspecified; K64.8 Other hemorrhoids; E78.5 Hyperlipidemia, unspecified; K58.9 Irritable bowel syndrome, unspecified; M81.0 Age-related osteoporosis without current pathological fracture; H54.7 Unspecified visual loss; K64.4 Residual hemorrhoidal skin tags; M25.552 Pain in left hip; R07.81 Pleurodynia; W01.0XXA Fall on same level from slipping, tripping and stumbling without subsequent striking against object, initial encounter; Y93.01 Activity, walking, marching and hiking; Y92.000 Kitchen of unspecified non-institutional (private) residence as the place of occurrence of the external cause; Z86.73 Personal history of transient ischemic attack (TIA), and cerebral infarction without residual deficits; Z87.11 Personal history of peptic ulcer disease; Z91.81 History of falling

== ENCOUNTER 2018-06-12 00:10 | Observation (INO) | payer MEDICARE | END 2018-06-13 15:33 | disposition home or self-care (01) | LOC: C.ER 00:10 → C.9E 02:24 → C.6T 03:12 | PROVIDERS: ADMIT Internal Medicine | CPT/HCPCS: 36415; 36430; 74022; 76770; 76857; 80048; 80053; 81001; 82570; 83690; 83930; 83935; 84156; 84300; 85025; 86850; 86900; 86920; 93005; 97116; 97162; 97166; 97530; 99285; G0378; G8978; G8979; G8987; G8988; J7030; J7040; P9051 ==